=== PATIENT | female | born 1955 | race African-American/Black ===

== ENCOUNTER 2016-06-30 18:47 | Inpatient (IN) | payer OTHER ==
[~2016-06-30] VITALS: Ht 170.2 cm; Wt 120.8 kg
[2016-06-30 18:55] VITALS: Ht 170.2 cm; Wt 120.8 kg
[2016-06-30 20:32] LABS: ADD SCAN DIFF NO
[2016-06-30 20:45] LABS: BASOPHILS % 0.3 % (0.0-2.0); EOSINOPHILS # 0.2 10^3/ul (0.0-0.5); EOSINOPHILS % 2.1 % (0.0-7.0); HEMATOCRIT 46.9 % (37.0-47.0); HEMOGLOBIN 14.9 g/dl (12.0-16.0); LYMPHOCYTES # 4.3 10^3/ul (0.8-2.9); LYMPHOCYTES % 40.3 % (15.0-51.0); MEAN CORPUSCULAR HEMOGLOBIN 29.7 pg (29.0-33.0); MEAN CORPUSCULAR HGB CONC 31.8 g/dl (32.0-37.0); MEAN CORPUSCULAR VOLUME 93.6 fl (82.0-101.0); MEAN PLATELET VOLUME 9.5 fl (7.4-10.4); MONOCYTE # 0.8 10^3/ul (0.3-0.9); MONOCYTES % 7.8 % (0.0-11.0); NEUTROPHIL # 5.2 10^3/ul (1.6-7.5); NUCLEATED RED BLOOD CELLS% 0.2 /100WBC (0.0-0.0); PLATELET COUNT 257 10^3/UL (140-415); RED BLOOD COUNT 5.01 10^6/ul (4.20-5.40); RED CELL DISTRIBUTION WIDTH 14.5 % (11.5-14.5); WHITE BLOOD COUNT 10.6 10^3/ul (4.8-10.8)
[2016-06-30 20:45] LABS: ADD UMIC YES; URINE BILIRUBIN (Dip) NEGATIVE (NEGATIVE); URINE BLOOD (Dip) NEGATIVE (NEGATIVE); URINE COLOR LT. YELLOW (YELLOW); URINE GLUCOSE (Dip) NEGATIVE (NEGATIVE); URINE KETONES (Dip) NEGATIVE (NEGATIVE); URINE LEUKOCYTE ESTERASE (Dip) TRACE (NEGATIVE); URINE NITRITE (Dip) NEGATIVE (NEGATIVE); URINE TOTAL PROTEIN (Dip) NEGATIVE (NEGATIVE); URINE UROBILINOGEN (Dip) 1.0 E.U./dL (0.1-1.0)
[2016-06-30 20:59] LABS: CHLORIDE 106 mmol/L (97-110); POTASSIUM 3.7 mmol/L (3.5-5.1); SODIUM 145 mmol/L (135-144)
[2016-06-30 21:01] LABS: ALBUMIN/GLOBULIN RATIO 1.05; ANION GAP 17 (8-16); ASPARTATE AMINO TRANSFERASE 77 IU/L (15-46); BILIRUBIN,INDIRECT 0.1 mg/dl (0-1.1); BILIRUBIN,TOTAL 0.1 mg/dl (0.2-1.3); CARBON DIOXIDE 26 mmol/L (21-31); CREATININE 1.02 mg/dl (0.44-1.00); TOTAL PROTEIN 7.8 g/dl (6.1-8.1)
[2016-06-30 21:02] LABS: ALANINE AMINOTRANSFERASE 61 IU/L (13-69); ALKALINE PHOSPHATASE 102 IU/L (42-121); BLOOD UREA NITROGEN 10 mg/dl (7-20); GLUCOSE 72 mg/dl (70-220)
[2016-06-30] MEDS ORDERED: morphine 4 MG/ML VIAL IV STA (21:08)
[2016-06-30] MEDS ORDERED: ONDANSETRON 4 MG INJ IV STA (21:08)
[2016-06-30 21:10] LABS: BACTERIA,URINE FEW; SQUAMOUS EPITHELIAL CELL,UR FEW; URINE RBCS 0-2 /HPF (0)
[2016-06-30 21:17] LABS: TROPONIN-I < 0.012 ng/ml (0.00-0.12)
[2016-06-30] MEDS ORDERED: METF500T4 ORAL (22:29)
[2016-06-30] MEDS ORDERED: LORA-441 ORAL (22:29)
[2016-06-30] MEDS ORDERED: SIMV20TA6 ORAL (22:29)
--- NOTE | 2016-06-30 22:57 | RADRPT ---
PROCEDURE: XR Chest. CLINICAL INDICATION: Chest pain. TECHNIQUE: Portable AP upright view of the chest was obtained. COMPARISON: None. FINDINGS: The cardiomediastinal silhouette is within normal limits. The lungs are clear. There is no evidenc e for pleural effusion, pneumothorax or pulmonary vascular congestion. The osseous structures are i ntact with no evidence for acute abnormality. Tiny metallic densities projecting over the right uppe r hemithorax likely reflect shrapnel from an old injury. RPTAT:HJJR IMPRESSION: No evidence for acute intrathoracic pathology. Physician Edith Date Time Electronically viewed and signed by Physician Edith on 06/30/2016 22:56 /
[2016-07-01] MEDS ORDERED: HYDROmorphONE 1 MG/ML SYG IV STA (01:57)
--- NOTE | 2016-07-01 02:12 | ERA ---
ER Documentation Chief Complaint Date/Time DATE: 07/01/16 TIME: 02:11 Chief Complaint pt c/o dizziness, shakiness, upset stomach, recently dx with cancer HPI This is a 62-year-old female, the dizziness shakiness of the stomach. She recently diagnosed cancer. She complains of chronic abdominal pain. Denies any fevers or chills. Denies any nausea vomiting. Denies any other current complaints ROS All systems reviewed and are negative except as per history of present illness. Medications Home Meds Reported Medications Simvastatin (Simvastatin) 20 Mg Tablet, ORAL HS 06/30/16 Metformin* (Glucophage*) 500 Mg Tab, ORAL DAILY 06/30/16 Lorazepam* (Ativan*) 0.5 Mg Tablet, ORAL DAILY 06/30/16 Allergies Allergies: Coded Allergies: No Known Allergy (Unverified , 06/30/16) PMhx/Soc History of Surgery: Yes (arturo) Anesthesia Reaction: No Hx Neurological Disorder: No Hx Respiratory Disorders: Yes (COPD) Hx Cardiac Disorders: Yes (HTN) Hx Psychiatric Problems: No Hx Miscellaneous Medical Probl: Yes (uterine, ovary cancer, CRF, DM) Hx Alcohol Use: No Hx Substance Use: No Hx Tobacco Use: Yes Smoking Status: Current every day smoker Physical Exam Vitals Vital Signs Date Time Temp Pulse Resp B/P Pulse Ox O2 Delivery O2 Flow Rate FiO2 06/30/16 20:00 98.6 76 18 124/74 93 Room Air 06/30/16 18:55 98.1 83 20 140/63 96 Physical Exam Const: [] Head: Atraumatic Eyes: Normal Conjunctiva ENT: Normal External Ears, Nose and Mouth. Neck: Full range of motion..~ No meningismus. Resp: Clear to auscultation bilaterally Cardio: Regular rate and rhythm, no murmurs Abd: Soft, non tender, non distended. Normal bowel sounds Skin: No petechiae or rashes Back: No midline or flank tenderness Ext: No cyanosis, or edema Neur: Awake and alert Psych: Normal Mood and Affect Result Diagram: 06/30/16201706/30/162017 Results 24 hrs Laboratory Tests Test 06/30/16 20:06 06/30/16 20:18 Urine Color LT. YELLOW Urine Clarity CLEAR Urine pH 6.0 Urine Specific Cutler 1.015 Urine Ketones NEGATIVE Urine Nitrite NEGATIVE Urine Bilirubin NEGATIVE Urine Urobilinogen 1.0 E.U./dL Urine Leukocyte Esterase TRACE Urine Microscopic RBC 0-2/HPF Urine Microscopic WBC 0-2/HPF Urine Squamous Epithelial Cells FEW Urine Bacteria FEW Urine Hemoglobin NEGATIVE Urine Glucose NEGATIVE% Urine Total Protein NEGATIVE White Blood Count 10.610^3/ul Red Blood Count 5.0110^6/ul Hemoglobin 14.9g/dl Hematocrit 46.9% Mean Corpuscular Volume 93.6fl Mean Corpuscular Hemoglobin 29.7pg Mean Corpuscular Hemoglobin Concent 31.8g/dl Red Cell Distribution Width 14.5% Platelet Count 03690^3/UL Mean Platelet Volume 9.5fl Neutrophils % 49.0% Lymphocytes % 40.3% Monocytes % 7.8% Eosinophils % 2.1% Basophils % 0.3% Nucleated Red Blood Cells % 0.2/100WBC Neutrophils # 5.210^3/ul Lymphocytes # 4.310^3/ul Monocytes # 0.810^3/ul Eosinophils # 0.210^3/ul Basophils # 0.010^3/ul Nucleated Red Blood Cells # 0.010^3/ul Sodium Level 145mmol/L Potassium Level 3.7mmol/L Chloride Level 106mmol/L Carbon Dioxide Level 26mmol/L Anion Gap 17 Blood Urea Nitrogen 10mg/dl Creatinine 1.02mg/dl Glucose Level 72mg/dl Calcium Level 9.0mg/dl Total Bilirubin 0.1mg/dl Direct Bilirubin 0.00mg/dl Indirect Bilirubin 0.1mg/dl Aspartate Amino Transf (AST/SGOT) 77IU/L Alanine Aminotransferase (ALT/SGPT) 61IU/L Alkaline Phosphatase 102IU/L Troponin I < 0.012ng/ml Total Protein 7.8g/dl Albumin 4.0g/dl Globulin 3.80g/dl Albumin/Globulin Ratio 1.05 Lipase 71U/L Current Medications Medications (Trade) Dose Ordered Sig/Hortencia Route PRN Reason Start Time Stop Time Status Last Admin Dose Admin Morphine Sulfate (morphine) 4 mg ONCE STAT IV 06/30/16 21:08 06/30/16 21:47 DC 06/30/16 21:52 Ondansetron HCl (Zofran Inj) 4 mg ONCE STAT IV 06/30/16 21:08 5/14/17 21:47 DC 06/30/16 21:51 Hydromorphone HCl (Dilaudid) 1 mg ONCE STAT IV 07/01/16 01:57 07/01/16 01:58 DC 07/01/16 02:03 Procedures/MDM Medical decision-making: Patient comes with intractable abdominal pain. At this point she will need to be admitted. Patient will be admitted to Dr. Brown. Departure Diagnosis: Primary Impression: Intractable abdominal pain Condition: Serious SEVERO DAMIAN July 01, 2016 02:12
[2016-07-01 03:58] VITALS: TEMP 98.3
[2016-07-01 05:13] VITALS: BP 96/48; RESP 19
[2016-07-01] MEDS ORDERED: DOCUSATE SODIUM 250 MG CAP PO PRN ×2 (05:30→13:30)
[2016-07-01] MEDS ORDERED: HYDROmorphONE 2 MG TAB PO PRN ×2 (06:00→13:30)
[2016-07-01] MEDS ORDERED: ACETAMINOPHEN 325 MG TAB PO PRN (06:30)
[2016-07-01] MEDS ORDERED: DOCUSATE SODIUM 100 MG CAP PO PRN (06:30)
[2016-07-01] MEDS ORDERED: BISACODYL (EC) 5 MG TAB PO PRN (06:30)
[2016-07-01] MEDS ORDERED: MAGNESIUM HYDROXIDE 30ML CUP PO PRN (06:30)
[2016-07-01] MEDS ORDERED: NACL 0.9% 3 ML SYG IV SCH (06:30)
[2016-07-01] MEDS ORDERED: ONDANSETRON 4 MG INJ IV PRN (06:30)
[2016-07-01] MEDS ORDERED: DOCU250C17 PO (06:40)
[2016-07-01] MEDS ORDERED: CLON0.5T4 PO (06:40)
[2016-07-01] MEDS ORDERED: PREG50CA PO (06:40)
[2016-07-01] MEDS ORDERED: HYDR2TAB15 PO (06:40)
[2016-07-01] MEDS ORDERED: ATOR40TA68 PO (06:40)
[2016-07-01] MEDS ORDERED: METO100T13 PO (06:40)
[2016-07-01] MEDS ORDERED: QUET400T11 PO (06:40)
[2016-07-01] MEDS ORDERED: BACL10TA PO (06:40)
[2016-07-01] MEDS ORDERED: DULO60CA59 PO (06:40)
[2016-07-01] MEDS ORDERED: GLIP-95 PO (06:40)
[2016-07-01] MEDS ORDERED: DEXTROSE 50% 50 ML SYRINGE IV PRN ×2 (07:00)
[2016-07-01] MEDS ORDERED: GLUCOSE GEL 15 GRAM TUBE BUCCAL PRN (07:00)
[2016-07-01] MEDS ORDERED: GLUCOSE GEL 15 GRAM TUBE PO PRN ×2 (07:00)
[2016-07-01] MEDS ORDERED: GLUCAGON 1 MG INJ IM PRN (07:00)
[2016-07-01] MEDS: INSULIN ASPART [NOVOLOG] 3 ML PEN SC SCH ×4 (07:51→19:58)
[2016-07-01 08:07] VITALS: BP 109/52; RESP 21
[2016-07-01] MEDS: ENOXAPARIN 40 MG/0.4 ML SYG SC SCH (08:18)
[2016-07-01] MEDS ORDERED: glipiZIDE 10 MG TAB PO SCH (09:00)
[2016-07-01] MEDS ORDERED: LORAZEPAM 0.5 MG TAB PO SCH (09:00)
[2016-07-01] MEDS ORDERED: PREGABALIN 50 MG CAP PO SCH ×2 (09:00→21:00)
[2016-07-01] MEDS ORDERED: METOPROLOL (XL) 100 MG TAB PO SCH (09:00)
[2016-07-01] MEDS ORDERED: BACLOFEN 10 MG TAB PO SCH (09:00)
[2016-07-01] MEDS ORDERED: clonAZEPAM 0.5 MG TAB PO SCH (09:00)
[2016-07-01] MEDS ORDERED: DULOXETINE 30 MG CAP DR PO SCH (09:00)
[2016-07-01] MEDS ORDERED: IODIXANOL LOCM 100 ML BTL ONE (14:55)
[2016-07-01] MEDS ORDERED: SOD CHLORIDE 0.9% 100 ML ONE (14:55)
--- NOTE | 2016-07-01 15:30 | RADRPT ---
PROCEDURE: CT of the abdomen and pelvis CLINICAL INDICATION: Abdominal pain. History of ovarian cancer. TECHNIQUE: The study was performed utilizing a GE lightspeed 64-slice multidetector CT scanner. Dir ect spiral axial sections were obtained through the abdomen and pelvis with intravenous contrast. Af ter administration of 100cc of Visipaque 320, postcontrast images were obtained. Coronal and sagitt al reformatted images were performed. The CTDI vol is 17.04 mGy and the DLP is 1333.82 mGy-cm. The images were reviewed on a PACS workstation. COMPARISON: No prior studies are available for comparison. FINDINGS: CT abdomen: The lung bases are clear. The heart is not enlarged. No pericardial effusion is seen. The liver is normal in size and contour. No focal liver lesions is seen. The gallbladder has been r emoved. Biliary dilatation is identified. The spleen, pancreas, and adrenal glands are unremarkabl e in appearance. The kidneys are normal in size and contour enhance normally. Right renal cortical s carring is seen. No evidence of hydronephrosis or nephrolithiasis is seen. The stomach is unremarkable. The large bowel is stool-filled. The small and large bowel are otherwi se unremarkable in course and caliber. A normal appendix is identified. No enlarged lymph nodes or fluid collections are seen. The aorta is normal in caliber. CT pelvis: The pelvic cystic structure is seen which is in the midline to slightly right of midline which is slightly complex with multiple septations. The pelvic cystic structure measures approximat jose 11.8 x 11.2 x 10.6 cm in size. No pelvic adenopathy, or focal fluid collection is seen. There i s no free fluid. The urinary bladder is normal. The pelvic organs are unremarkable. No osseous les ions are seen. Severe osteoarthritis in the right hip is seen. IMPRESSION: 1. Complex pelvic cystic structure consistent with the clinical history of an ovarian cancer. 2. Status post cholecystectomy with biliary dilatation which may be physiologic. 3. Severe osteoarthritis of the right hip. 4. Stool filled large bowel. RPTAT: HPNM Physician Louise Date Time Electronically viewed and signed by Physician Louise on 07/01/2016 15:30 /
[2016-07-01 15:54] LABS: CANCER ANTIGEN 125 7.1 U/ml (0.0-35.0)
[2016-07-01 15:55] LABS: CARCINOEMBRYONIC ANTIGEN 1.4 ng/ml (0.0-5.0)
--- NOTE | 2016-07-01 16:12 | RADRPT ---
PROCEDURE: CT Chest. CLINICAL INDICATION: Dyspnea and shortness of breath TECHNIQUE: CT scan of the chest with contrast was performed on the [employer] volumetric [address] [facility] The patient was scanned following the uncomplicated intravenous administration of 100 cc of Vis ipaque 320 intravenous contrast. Coronal and sagittal reformatted images were obtained from the axia l source images. The CTDI is 17.04 mGy and the DLP is 1333.82 mGy-cm. COMPARISON: None. FINDINGS: Diffuse central of emphysematous changes are seen within upper lobe predominance. No dense consolida tion or pleural effusion is seen. Shrapnel is seen in the right lung. In addition, shrapnel is see n in the right posterior chest wall. The mediastinum is unremarkable without evidence for mass or lymphadenopathy. The vascular structures of the mediastinum are normal in course and caliber. The heart size is normal without evidence for pericardial thickening or effusion. The axillary regions, subpectoral regions, and supraclavicular regions are all unremarkable. Findings in the upper abdom en, please refer to the CT of the abdomen and pelvis report from 07/01/2016. The osseous structures are intact. No osteolytic or osteoblastic lesion is detected. IMPRESSION: 1. No CT evidence for acute pathology in the chest. 2. Diffuse centrilobular emphysematous changes. 3. Shrapnel in the right posterior chest wall as well as in the right lung. RPTAT: HPNM Physician Louise Date Time Electronically viewed and signed by Physician Louise on 07/01/2016 16:11 /
--- NOTE | 2016-07-01 17:38 | QN ---
Documentation Comment [id number] LATRICIA WORLEY MD July 01, 2016 17:38
[2016-07-01] MEDS: clonAZEPAM 0.5 MG TAB PO SCH ×2 (18:12→20:09)
[2016-07-01] MEDS: BACLOFEN 10 MG TAB PO SCH (20:09)
[2016-07-01] MEDS: QUETIAPINE 100 MG TAB PO SCH (20:09)
[2016-07-01] MEDS: PREGABALIN 25 MG CAP PO SCH (20:09)
[2016-07-01] MEDS: ATORVASTATIN 40 MG TAB PO SCH (20:09)
[2016-07-01 20:20] VITALS: BP 117/58; RESP 19
[2016-07-01] MEDS ORDERED: QUETIAPINE 100 MG TAB PO SCH (21:00)
[2016-07-01] MEDS ORDERED: ATORVASTATIN 40 MG TAB PO SCH (21:00)
--- NOTE | 2016-07-01 23:26 | HP ---
DATE OF ADMISSION: 07/01/2016 HISTORY OF PRESENT ILLNESS: The patient presented to this hospital with complaints of weakness, abdominal pain. The patient as per ER note noted to have some sort of LEGAL MANAGER malignancy, the patient is not sure, but patient was supposed to see Dr. Rodriguez. I spoke with Dr. Rodriguez. He told me that patient has pelvic mass and the patient presented to this hospital for that. The patient had a CT of the chest done, shows no CT evidence for acute pathology. Diffuse centrilobular_ in the right posterior chest wall as well as the right lung. The patient had CT abdomen, pelvis, chest, shows complex pelvic cystic structure consistent with clinical history of ovarian cancer; status post cholecystectomy with biliary dilatation which may be physiologic; severe osteoarthritis of the right hip; stool-filled large bowel. The patient' s laboratory data done shows sodium 145, potassium 3.7, hematocrit 46.9. Urinalysis has leukocyte esterase but WBC negative. PAST MEDICAL HISTORY: Positive for hypertension, diabetes mellitus, dyslipidemia, pelvic mass, neuropathy. ALLERGY HISTORY: NEGATIVE. FAMILY HISTORY: Positive for cancer, patient does not know what kind. SOCIAL HISTORY: Smokes few cigarettes. No drugs. MEDICATIONS: At home, patient takes: 1. Lipitor. 2. Baclofen. 3. Clonazepam. 4. Docusate sodium. 5. Cymbalta. 6. Glipizide. 7. Hydromorphone. 8. Lorazepam. 9. Metformin. 10. Metoprolol. 11. Pregabalin. 12. Seroquel. 13. Simvastatin. REVIEW OF SYSTEMS: HEENT: Unremarkable. RESPIRATORY: Unremarkable. CARDIOVASCULAR: Unremarkable. ABDOMEN: No abdominal pain at this time but ongoing dyspepsia. EXTREMITIES: History of neuropathy. PHYSICAL EXAMINATION: GENERAL: The patient is anxious-looking female, awake, alert. VITAL SIGNS: Pulse 65, blood pressure 95/48. HEENT: Head is atraumatic, normocephalic. Pupils equal, reactive to light. NECK: Supple. No JVD. LUNGS: Clear. CARDIOVASCULAR: S1, S2 normal. ABDOMEN: Soft, nontender. Bowel sounds positive. No palpable mass or hepatosplenomegaly. Scar of cholecystectomy noted. EXTREMITIES: There is no cyanosis, clubbing or edema. CENTRAL NERVOUS SYSTEM: The patient is awake, alert with no focal deficit. LABORATORY DATA: As mentioned above. IMPRESSION: 1. The patient has complex pelvic cystic structure 11.8 x 11.2 x 10.6 cm in size. 2. The patient has hypernatremia. 3. The patient has renal insufficiency. 4. History of diabetes mellitus. 5. Dyslipidemia. 6. History of hypertension. 7. History of cholecystectomy. PLAN: Obtain cancer marker. Dr. Rodriguez to see this patient, consultation has been called. Further recommendation will be made when above data is available. Dictated By: LATRICIA WORLEY MD BS/NTS Conf#: [id number] DID#: [id number] MTDD
[2016-07-02] MEDS: ACCU-CHEK XX SCH (02:00)
[2016-07-02 06:12] LABS: ADD SCAN DIFF NO; BASOPHILS % 0.3 % (0.0-2.0); EOSINOPHILS # 0.2 10^3/ul (0.0-0.5); EOSINOPHILS % 3.1 % (0.0-7.0); HEMATOCRIT 44.8 % (37.0-47.0); LYMPHOCYTES # 1.8 10^3/ul (0.8-2.9); LYMPHOCYTES % 29.7 % (15.0-51.0); MEAN CORPUSCULAR HEMOGLOBIN 29.5 pg (29.0-33.0); MEAN CORPUSCULAR HGB CONC 31.3 g/dl (32.0-37.0); MEAN CORPUSCULAR VOLUME 94.5 fl (82.0-101.0); MEAN PLATELET VOLUME 10.1 fl (7.4-10.4); MONOCYTE # 0.6 10^3/ul (0.3-0.9); MONOCYTES % 9.7 % (0.0-11.0); NEUTROPHIL # 3.4 10^3/ul (1.6-7.5); PLATELET COUNT 230 10^3/UL (140-415); RED BLOOD COUNT 4.74 10^6/ul (4.20-5.40); RED CELL DISTRIBUTION WIDTH 14.4 % (11.5-14.5); WHITE BLOOD COUNT 5.9 10^3/ul (4.8-10.8)
[2016-07-02] MEDS: PANTOPRAZOLE 40 MG INJ IV SCH (06:20)
[2016-07-02] MEDS: morphine 2 MG INJ IV PRN ×3 (06:20→20:33)
[2016-07-02 06:24] LABS: ALBUMIN 3.4 g/dl (3.3-4.9)
[2016-07-02 06:25] LABS: POTASSIUM 3.5 mmol/L (3.5-5.1)
[2016-07-02 06:27] LABS: ALBUMIN/GLOBULIN RATIO 0.97; BILIRUBIN,INDIRECT 0.3 mg/dl (0-1.1); BILIRUBIN,TOTAL 0.3 mg/dl (0.2-1.3); CALCIUM 8.8 mg/dl (8.4-10.2); CREATININE 0.91 mg/dl (0.44-1.00); TOTAL PROTEIN 6.9 g/dl (6.1-8.1)
[2016-07-02 07:30] VITALS: BP 124/57; RESP 19
[2016-07-02] MEDS: INSULIN ASPART [NOVOLOG] 3 ML PEN SC SCH ×4 (07:43→20:32)
[2016-07-02] MEDS: clonAZEPAM 0.5 MG TAB PO SCH ×3 (08:32→20:29)
[2016-07-02] MEDS: BACLOFEN 10 MG TAB PO SCH ×3 (08:33→20:29)
[2016-07-02] MEDS: PREGABALIN 25 MG CAP PO SCH ×2 (08:33→20:30)
[2016-07-02] MEDS: DULOXETINE 30 MG CAP DR PO SCH (08:33)
[2016-07-02] MEDS: ENOXAPARIN 40 MG/0.4 ML SYG SC SCH (08:34)
[2016-07-02] MEDS: METOPROLOL (XL) 100 MG TAB PO SCH (08:53)
[2016-07-02 10:20] VITALS: BP 121/63; PULSE 80; RESP 16
[2016-07-02 11:11] LABS: AADO2 Arterial 66.9 mmHg (7.0-24.0); Allen Test ACCEPTAB; Arterial Base Excess -0.1 mmol/L (-3.0-3); Arterial COHb 0.7 % (0.0-3.0); Arterial Fraction of Oxyhgb 91.8 % (93.0-99.0); Arterial HCO3 25.8 mmol/L (22.0-26.0); Arterial MetHb 0.2 % (0.0-1.5); Arterial Total Hemglobin 14.4 g/dl (12.0-18.0); MODE NASAL CANNULA
--- NOTE | 2016-07-02 12:07 | RADRPT ---
PROCEDURE: Chest Radiograph. CLINICAL INDICATION: Hypoxia TECHNIQUE: Single frontal chest radiograph. COMPARISON: Chest radiograph of 06/30/2016. CT chest 07/01/2016. FINDINGS: Lung volumes are moderately decreased and there is worsening basilar atelectasis and central carol sive change. These findings limit evaluation for central vascular congestion and pulmonary edema. F urthermore, the patient is rotated. Heart size is poorly evaluated. There is worsening bilateral in terstitial and air space disease suggesting pulmonary edema. Multifocal pneumonia could also the torres perior. The bones are intact. Right chest wall shrapnel is unchanged. IMPRESSION: 1. Interval marked decrease in lung volumes with associated basilar atelectasis and central carol sive change which limits evaluation. 2. New interstitial and airspace opacities which may be related to compressive changes but raise co ncern for pulmonary edema and/or multifocal pneumonia. Recommend repeat chest radiograph with impro sukumar inspiration if possible. RPTAT: KK .Abbe Couch MD, MD Date Time Electronically viewed and signed by .Abbe Couch MD, on 07/02/2016 12:07 .B/
[2016-07-02] MEDS ORDERED: ALBUTEROL/IPRATROPIUM (NEB) 3 ML AMP HHN PRN (13:00)
[2016-07-02] MEDS: ALBUTEROL/IPRATROPIUM (NEB) 3 ML AMP HHN SCH ×2 (16:11→20:36)
[2016-07-02 20:05] VITALS: BP 118/63; RESP 18
[2016-07-02] MEDS: ATORVASTATIN 40 MG TAB PO SCH (20:30)
[2016-07-02] MEDS: QUETIAPINE 100 MG TAB PO SCH (20:31)
--- NOTE | 2016-07-02 21:35 | CONS ---
Date/Time of Note Date/Time of Note DATE: 07/02/16 TIME: 21:34 Consultation Date/Type/Reason Admit Date/Time July 01, 2016 at 04:43 Hx of Present Illness Ceasar Rondon M.D. 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 The mass is complex and 8-10 cm central pelvis associated with pain. The pain is worstening and she was also admitted for medical issues as well with O2 desat. Medical history/ROS: all other systems unremarkable. Surgical history: GB and CS x1 Medications: Flu no, declined, Pneumococcal no, declined Allergies: 06/27/16 Codeine Family Hx: non-contributary Social HX: non-contributary ROS: as above Colonoscopy: yes, Physical Examination Vitals (06/27/2016): Weight 257, Height 67, BP 122/80, BMI 40.2. General: Alert. HEENT: Pupils are equal, round, reactive to light and accommodation. Neck: Supple with no masses of lymphadenopathy. Breast: Deferred due to recent examination and responsibility of primary care physician. Chest: Clear to auscultation but on O2 and labored Heart: Normal rhythm with no murmur. Abdomen: Non tender, no ascites nor organomeglay. Pelvic exam: Posterior pelvic mass, no cul-de-sac nodularity noted Rectal: confirmatory with pelvic exam. Neurological: Grossly intact Assessment: Pelvic mass Plan: PENDING clearance: Laparoscopic BSO, possible UDx2 , possible hysterectomy , possible staging, possible open to remove pelvic mass. All risks and benefits of this procedure have been discussed in detail with the patient, as well as alternative treatment strategies and their implications. The patient is aware that there is some possibility of a blood transfusion and its associated risks and benefits. She wishes to proceed and gives her informed consent. Ceasar Rondon M.D. Social History Smoking Status: Current every day smoker Exam/Review of Systems Vital Signs Vitals Vital Signs Date Time Temp Pulse Resp B/P Pulse Ox O2 Delivery O2 Flow Rate FiO2 07/02/16 20:36 95 2.0 07/02/16 20:36 85 17 Nasal Cannula 07/02/16 20:05 97.9 118/63 Intake and Output 07/01/16 07/01/16 07/02/16 15:00 23:00 07:00 Intake Total 1220 ml 500 ml Balance 1220 ml 500 ml Results Result Diagram: 07/02/16 0430 07/02/16 0430 Results 24 hrs Laboratory Tests Test 07/02/16 04:30 07/02/16 07:38 07/02/16 10:30 07/02/16 11:50 White Blood Count 5.9 # Red Blood Count 4.74 Hemoglobin 14.0 Hematocrit 44.8 Mean Corpuscular Volume 94.5 Mean Corpuscular Hemoglobin 29.5 Mean Corpuscular Hemoglobin Concent 31.3 L Red Cell Distribution Width 14.4 Platelet Count 230 Mean Platelet Volume 10.1 Neutrophils % 57.0 Lymphocytes % 29.7 Monocytes % 9.7 Eosinophils % 3.1 Basophils % 0.3 Nucleated Red Blood Cells % 0.0 Neutrophils # 3.4 Lymphocytes # 1.8 Monocytes # 0.6 Eosinophils # 0.2 Basophils # 0.0 Nucleated Red Blood Cells # 0.0 Sodium Level 143 Potassium Level 3.5 Chloride Level 105 Carbon Dioxide Level 26 Anion Gap 16 Blood Urea Nitrogen 12 Creatinine 0.91 Glucose Level 116 # Calcium Level 8.8 Total Bilirubin 0.3 Direct Bilirubin 0.00 Indirect Bilirubin 0.3 Aspartate Amino Transf (AST/SGOT) 133 H Alanine Aminotransferase (ALT/SGPT) 93 H Alkaline Phosphatase 114 Total Protein 6.9 Albumin 3.4 Globulin 3.50 H Albumin/Globulin Ratio 0.97 Bedside Glucose 122 Blood Gas Specimen Source Blood arterial Arterial Blood Date Drawn 07/02/2016 10:50:18 AM Arterial Blood pH (Temp corrected) 7.357 Arterial Blood pCO2 (Temp correct) 47.1 H Arterial Blood pO2 (Temp corrected) 69.9 L Arterial Blood HCO3 25.8 Arterial Blood Base Excess -0.1 Arterial Blood Oxygen Saturation 92.6 L Mike Test ACCEPTAB Arterial Blood Gas Puncture Site Right Radial Arterial Blood Carboxyhemoglobin 0.7 Arterial Blood Methemoglobin 0.2 Blood Gas A-a O2 Differential 66.9 H Oxyhemoglobin Percent 91.8 L Total Hemoglobin 14.4 Blood Gas Temperature 37.0 Blood Gas Modality NASAL CANNULA FiO2 27.0 Blood Gas Notified Whom JLD Blood Gas Notified Time 07/02/2016 11:10:59 AM Troponin I < 0.012 Test 07/02/16 11:53 07/02/16 17:24 07/02/16 20:24 Bedside Glucose 137 126 160 Medications Medications Current Medications Ondansetron HCl (Zofran Inj) 4 mg Q6H PRN IV NAUSEA AND/OR VOMITING; Start at 06:30 Acetaminophen (Tylenol Tab) 650 mg Q6H PRN PO PAIN LEVEL 1-3 OR FEVER; Start at 06:30 Morphine Sulfate (morphine) 2 mg Q4H PRN IV SEVERE PAIN LEVEL 7-10 Last administered on 07/02/16 20:33; Admin Dose 2 MG; Start 07/01/16 at 06:30 Docusate Sodium (Colace) 100 mg Q12H PRN PO CONSTIPATION; Start 07/01/16 at 06: 30 Magnesium Hydroxide (Milk Of Mag) 30 ml DAILY PRN PO CONSTIPATION; Start at 06:30 Bisacodyl (Dulcolax) 5 mg DAILY PRN PO CONSTIPATION; Start 07/01/16 at 06:30 Pantoprazole (Protonix Iv) 40 mg DAILY@06 IV Last administered on 07/02/16 06: 20; Admin Dose 40 MG; Start 07/02/16 at 06:00 Enoxaparin Sodium (Lovenox) 40 mg DAILY SC Last administered on 07/02/16 08:34 ; Admin Dose 40 MG; Start 07/01/16 at 09:00 Diagnostic Test (Pha) (Accu-Chek) 1 ea 02 XX ; Start 07/02/16 at 02:00 Miscellaneous Information 1 ea NOTE XX ; Start 07/01/16 at 07:00 Glucose (Glutose) 15 gm Q15M PRN PO DECREASED GLUCOSE; Start 07/01/16 at 07:00 Glucose (Glutose) 22.5 gm Q15M PRN PO DECREASED GLUCOSE; Start 07/01/16 at 07: 00 Dextrose (D50w Syringe) 25 ml Q15M PRN IV DECREASED GLUCOSE; Start 07/01/16 at 07:00 Dextrose (D50w Syringe) 50 ml Q15M PRN IV DECREASED GLUCOSE; Start 07/01/16 at 07:00 Glucagon (Glucagen) 1 mg Q15M PRN IM DECREASED GLUCOSE; Start 07/01/16 at 07:00 Glucose (Glutose) 15 gm Q15M PRN BUCCAL DECREASED GLUCOSE; Start 07/01/16 at 07 :00 Atorvastatin Calcium (Lipitor) 40 mg HS PO Last administered on 07/02/16 20:30 ; Admin Dose 40 MG; Start 07/01/16 at 21:00 Baclofen (Lioresal) 10 mg TID PO Last administered on 07/02/16 20:29; Admin Dose 10 MG; Start 07/01/16 at 21:00 Clonazepam (Klonopin) 0.5 mg TID PO Last administered on 07/02/16 20:29; Admin Dose 0.5 MG; Start 07/01/16 at 19:00 Docusate Sodium (Colace) 250 mg DAILY PRN PO CONSTIPATION; Start 07/01/16 at 13 :30 Duloxetine HCl (Cymbalta) 60 mg DAILY PO Last administered on 07/02/16 08:33; Admin Dose 60 MG; Start 07/02/16 at 09:00 Hydromorphone HCl (Dilaudid) 2 mg TID PRN PO pain Last administered on 17:26; Admin Dose 2 MG; Start 07/01/16 at 13:30 Metoprolol Succinate (Toprol Xl) 100 mg DAILY PO ; Start 07/02/16 at 09:00 Quetiapine Fumarate (Seroquel) 400 mg QHS PO Last administered on 07/02/16 20: 31; Admin Dose 400 MG; Start 07/01/16 at 21:00 Pregabalin (Lyrica) 50 mg BID PO Last administered on 07/02/16 20:30; Admin Dose 50 MG; Start 07/01/16 at 21:00 CEASAR RONDON MD July 02, 2016 21:35
--- NOTE | 2016-07-02 23:19 | PN ---
Date/Time of Note Date/Time of Note DATE: 07/02/16 TIME: 23:18 Assessment/Plan VTE Prophylaxis VTE Prophylaxis Intervention: other Lines/Catheters IV Catheter Type (from [facility]): Saline Lock Assessment/Plan Chief Complaint/Hosp Course IMPRESSION: 1. The patient has complex pelvic cystic structure 11.8 x 11.2 x 10.6 cm in size. 2. The patient has hypernatremia. 3. The patient has renal insufficiency. 4. History of diabetes mellitus. 5. Dyslipidemia. 6. History of hypertension. 7. History of cholecystectomy. 9 copd 10 poss pneumonia/atelectasis plan hhn antibiotic Problems: Subjective 24 Hr Interval Summary Respiratory: shortness of breath (+) Gastrointestinal: no complaints Genitourinary: no complaints Exam/Review of Systems Vital Signs Vitals Vital Signs Date Time Temp Pulse Resp B/P Pulse Ox O2 Delivery O2 Flow Rate FiO2 07/02/16 20:36 95 2.0 07/02/16 20:36 85 17 Nasal Cannula 07/02/16 20:05 97.9 118/63 Intake and Output 07/01/16 07/01/16 07/02/16 15:00 23:00 07:00 Intake Total 1220 ml 500 ml Balance 1220 ml 500 ml Exam Respiratory: diminished breath sounds Cardiovascular: regular rate and rhythm Gastrointestinal: bowel sounds, soft Extremities: No edema Results Result Diagram: 07/02/16 0430 07/02/16 0430 Results 24 hrs Laboratory Tests Test 07/02/16 04:30 07/02/16 07:38 07/02/16 10:30 07/02/16 11:50 White Blood Count 5.9 # Red Blood Count 4.74 Hemoglobin 14.0 Hematocrit 44.8 Mean Corpuscular Volume 94.5 Mean Corpuscular Hemoglobin 29.5 Mean Corpuscular Hemoglobin Concent 31.3 L Red Cell Distribution Width 14.4 Platelet Count 230 Mean Platelet Volume 10.1 Neutrophils % 57.0 Lymphocytes % 29.7 Monocytes % 9.7 Eosinophils % 3.1 Basophils % 0.3 Nucleated Red Blood Cells % 0.0 Neutrophils # 3.4 Lymphocytes # 1.8 Monocytes # 0.6 Eosinophils # 0.2 Basophils # 0.0 Nucleated Red Blood Cells # 0.0 Sodium Level 143 Potassium Level 3.5 Chloride Level 105 Carbon Dioxide Level 26 Anion Gap 16 Blood Urea Nitrogen 12 Creatinine 0.91 Glucose Level 116 # Calcium Level 8.8 Total Bilirubin 0.3 Direct Bilirubin 0.00 Indirect Bilirubin 0.3 Aspartate Amino Transf (AST/SGOT) 133 H Alanine Aminotransferase (ALT/SGPT) 93 H Alkaline Phosphatase 114 Total Protein 6.9 Albumin 3.4 Globulin 3.50 H Albumin/Globulin Ratio 0.97 Bedside Glucose 122 Blood Gas Specimen Source Blood arterial Arterial Blood Date Drawn 07/02/2016 10:50:18 AM Arterial Blood pH (Temp corrected) 7.357 Arterial Blood pCO2 (Temp correct) 47.1 H Arterial Blood pO2 (Temp corrected) 69.9 L Arterial Blood HCO3 25.8 Arterial Blood Base Excess -0.1 Arterial Blood Oxygen Saturation 92.6 L Mike Test ACCEPTAB Arterial Blood Gas Puncture Site Right Radial Arterial Blood Carboxyhemoglobin 0.7 Arterial Blood Methemoglobin 0.2 Blood Gas A-a O2 Differential 66.9 H Oxyhemoglobin Percent 91.8 L Total Hemoglobin 14.4 Blood Gas Temperature 37.0 Blood Gas Modality NASAL CANNULA FiO2 27.0 Blood Gas Notified Whom JLD Blood Gas Notified Time 07/02/2016 11:10:59 AM Troponin I < 0.012 Test 07/02/16 11:53 07/02/16 17:24 07/02/16 20:24 Bedside Glucose 137 126 160 Medications Medications Current Medications Ondansetron HCl (Zofran Inj) 4 mg Q6H PRN IV NAUSEA AND/OR VOMITING; Start at 06:30 Acetaminophen (Tylenol Tab) 650 mg Q6H PRN PO PAIN LEVEL 1-3 OR FEVER; Start at 06:30 Morphine Sulfate (morphine) 2 mg Q4H PRN IV SEVERE PAIN LEVEL 7-10 Last administered on 07/02/16 20:33; Admin Dose 2 MG; Start 07/01/16 at 06:30 Docusate Sodium (Colace) 100 mg Q12H PRN PO CONSTIPATION; Start 07/01/16 at 06: 30 Magnesium Hydroxide (Milk Of Mag) 30 ml DAILY PRN PO CONSTIPATION; Start at 06:30 Bisacodyl (Dulcolax) 5 mg DAILY PRN PO CONSTIPATION; Start 07/01/16 at 06:30 Pantoprazole (Protonix Iv) 40 mg DAILY@06 IV Last administered on 07/02/16 06: 20; Admin Dose 40 MG; Start 07/02/16 at 06:00 Enoxaparin Sodium (Lovenox) 40 mg DAILY SC Last administered on 07/02/16 08:34 ; Admin Dose 40 MG; Start 07/01/16 at 09:00 Diagnostic Test (Pha) (Accu-Chek) 1 ea 02 XX ; Start 07/02/16 at 02:00 Miscellaneous Information 1 ea NOTE XX ; Start 07/01/16 at 07:00 Glucose (Glutose) 15 gm Q15M PRN PO DECREASED GLUCOSE; Start 07/01/16 at 07:00 Glucose (Glutose) 22.5 gm Q15M PRN PO DECREASED GLUCOSE; Start 07/01/16 at 07: 00 Dextrose (D50w Syringe) 25 ml Q15M PRN IV DECREASED GLUCOSE; Start 07/01/16 at 07:00 Dextrose (D50w Syringe) 50 ml Q15M PRN IV DECREASED GLUCOSE; Start 07/01/16 at 07:00 Glucagon (Glucagen) 1 mg Q15M PRN IM DECREASED GLUCOSE; Start 07/01/16 at 07:00 Glucose (Glutose) 15 gm Q15M PRN BUCCAL DECREASED GLUCOSE; Start 07/01/16 at 07 :00 Atorvastatin Calcium (Lipitor) 40 mg HS PO Last administered on 07/02/16 20:30 ; Admin Dose 40 MG; Start 07/01/16 at 21:00 Baclofen (Lioresal) 10 mg TID PO Last administered on 07/02/16 20:29; Admin Dose 10 MG; Start 07/01/16 at 21:00 Clonazepam (Klonopin) 0.5 mg TID PO Last administered on 07/02/16 20:29; Admin Dose 0.5 MG; Start 07/01/16 at 19:00 Docusate Sodium (Colace) 250 mg DAILY PRN PO CONSTIPATION; Start 07/01/16 at 13 :30 Duloxetine HCl (Cymbalta) 60 mg DAILY PO Last administered on 07/02/16 08:33; Admin Dose 60 MG; Start 07/02/16 at 09:00 Hydromorphone HCl (Dilaudid) 2 mg TID PRN PO pain Last administered on 17:26; Admin Dose 2 MG; Start 07/01/16 at 13:30 Metoprolol Succinate (Toprol Xl) 100 mg DAILY PO ; Start 07/02/16 at 09:00 Quetiapine Fumarate (Seroquel) 400 mg QHS PO Last administered on 07/02/16 20: 31; Admin Dose 400 MG; Start 07/01/16 at 21:00 Pregabalin (Lyrica) 50 mg BID PO Last administered on 07/02/16 20:30; Admin Dose 50 MG; Start 07/01/16 at 21:00 Furosemide 20 mg 20 mg DAILY IV ; Start 07/03/16 at 09:00; Status UNV Ceftriaxone Sodium (Rocephin) 50 ml @ 100 mls/hr Q24H IVPB ; Start 07/02/16 at 23:30; Status UNV LATRICIA WORLEY MD July 02, 2016 23:19
[2016-07-03] MEDS: CEFTRIAXONE 1 GM/50 ML (PMX) 50 ML IVPB SCH (00:10)
[2016-07-03] MEDS: ACCU-CHEK XX SCH (01:49)
[2016-07-03] MEDS: ALBUTEROL/IPRATROPIUM (NEB) 3 ML AMP HHN SCH ×4 (02:00→19:52)
[2016-07-03] MEDS: PANTOPRAZOLE 40 MG INJ IV SCH (06:14)
[2016-07-03 07:56] VITALS: BP 116/57; RESP 16
[2016-07-03] MEDS: BACLOFEN 10 MG TAB PO SCH ×3 (08:15→20:45)
[2016-07-03] MEDS: clonAZEPAM 0.5 MG TAB PO SCH ×3 (08:15→20:45)
[2016-07-03] MEDS: PREGABALIN 25 MG CAP PO SCH ×2 (08:15→20:45)
[2016-07-03] MEDS: DULOXETINE 30 MG CAP DR PO SCH (08:16)
[2016-07-03] MEDS: FUROSEMIDE 20 MG INJ IV SCH (08:16)
[2016-07-03] MEDS: METOPROLOL (XL) 100 MG TAB PO SCH (08:17)
[2016-07-03] MEDS: ENOXAPARIN 40 MG/0.4 ML SYG SC SCH (08:18)
[2016-07-03] MEDS: INSULIN ASPART [NOVOLOG] 3 ML PEN SC SCH ×4 (08:19→20:45)
--- NOTE | 2016-07-03 10:50 | PN ---
Date/Time of Note Date/Time of Note DATE: 07/03/16 TIME: 10:45 Assessment/Plan VTE Prophylaxis VTE Prophylaxis Intervention: LMWH Lines/Catheters IV Catheter Type (from Nrsg): Saline Lock Assessment/Plan Chief Complaint/Hosp Course Pelvic mass, possible pneumonia Problems: Assessment/Plan Issue is whether pheumonia and whether cleared for surgery Friday; should I bowel prep a.m. as needed. Will discuss with Dr. Brown. Subjective 24 Hr Interval Summary Free Text/Dictation Feels about the same. Minimally OOB and on O2. Exam/Review of Systems Vital Signs Vitals Vital Signs Date Time Temp Pulse Resp B/P Pulse Ox O2 Delivery O2 Flow Rate FiO2 07/03/16 07:56 98.2 91 16 116/57 92 07/03/16 07:54 21 07/03/16 02:00 2.0 07/03/16 02:00 Nasal Cannula Intake and Output 07/02/16 07/02/16 07/03/16 15:00 23:00 07:00 Intake Total 900 ml 300 ml Balance 900 ml 300 ml Results Result Diagram: 07/02/16 0430 07/02/16 0430 Results 24 hrs Laboratory Tests Test 07/02/16 11:50 07/02/16 11:53 07/02/16 17:24 07/02/16 20:24 Troponin I < 0.012 Bedside Glucose 137 126 160 Test 07/03/16 07:52 Bedside Glucose 168 Medications Medications Current Medications Ondansetron HCl (Zofran Inj) 4 mg Q6H PRN IV NAUSEA AND/OR VOMITING; Start at 06:30 Acetaminophen (Tylenol Tab) 650 mg Q6H PRN PO PAIN LEVEL 1-3 OR FEVER; Start at 06:30 Morphine Sulfate (morphine) 2 mg Q4H PRN IV SEVERE PAIN LEVEL 7-10 Last administered on 07/02/16t 20:33; Admin Dose 2 MG; Start 07/01/16 at 06:30 Docusate Sodium (Colace) 100 mg Q12H PRN PO CONSTIPATION; Start 07/01/16 at 06: 30 Magnesium Hydroxide (Milk Of Mag) 30 ml DAILY PRN PO CONSTIPATION; Start at 06:30 Bisacodyl (Dulcolax) 5 mg DAILY PRN PO CONSTIPATION; Start 07/01/16 at 06:30 Pantoprazole (Protonix Iv) 40 mg DAILY@06 IV Last administered on 07/03/16 06: 14; Admin Dose 40 MG; Start 07/02/16 at 06:00 Enoxaparin Sodium (Lovenox) 40 mg DAILY SC Last administered on 07/03/16 08:18 ; Admin Dose 40 MG; Start 07/01/16 at 09:00 Diagnostic Test (Pha) (Accu-Chek) 1 ea 02 XX ; Start 07/02/16 at 02:00 Miscellaneous Information 1 ea NOTE XX ; Start 07/01/16 at 07:00 Glucose (Glutose) 15 gm Q15M PRN PO DECREASED GLUCOSE; Start 07/01/16 at 07:00 Glucose (Glutose) 22.5 gm Q15M PRN PO DECREASED GLUCOSE; Start 07/01/16 at 07: 00 Dextrose (D50w Syringe) 25 ml Q15M PRN IV DECREASED GLUCOSE; Start 07/01/16 at 07:00 Dextrose (D50w Syringe) 50 ml Q15M PRN IV DECREASED GLUCOSE; Start 07/01/16 at 07:00 Glucagon (Glucagen) 1 mg Q15M PRN IM DECREASED GLUCOSE; Start 07/01/16 at 07:00 Glucose (Glutose) 15 gm Q15M PRN BUCCAL DECREASED GLUCOSE; Start 07/01/16 at 07 :00 Atorvastatin Calcium (Lipitor) 40 mg HS PO Last administered on 07/02/16 20:30 ; Admin Dose 40 MG; Start 07/01/16 at 21:00 Baclofen (Lioresal) 10 mg TID PO Last administered on 07/03/16 08:15; Admin Dose 10 MG; Start 07/01/16 at 21:00 Clonazepam (Klonopin) 0.5 mg TID PO Last administered on 07/03/16 08:15; Admin Dose 0.5 MG; Start 07/01/16 at 19:00 Docusate Sodium (Colace) 250 mg DAILY PRN PO CONSTIPATION; Start 07/01/16 at 13 :30 Duloxetine HCl (Cymbalta) 60 mg DAILY PO Last administered on 07/03/16 08:16; Admin Dose 60 MG; Start 07/02/16 at 09:00 Hydromorphone HCl (Dilaudid) 2 mg TID PRN PO pain Last administered on 17:26; Admin Dose 2 MG; Start 07/01/16 at 13:30 Metoprolol Succinate (Toprol Xl) 100 mg DAILY PO Last administered on 08:17; Admin Dose 100 MG; Start 07/02/16 at 09:00 Quetiapine Fumarate (Seroquel) 400 mg QHS PO Last administered on 07/02/16 20: 31; Admin Dose 400 MG; Start 07/01/16 at 21:00 Pregabalin (Lyrica) 50 mg BID PO Last administered on 07/03/16 08:15; Admin Dose 50 MG; Start 07/01/16 at 21:00 Furosemide 20 mg 20 mg DAILY IV Last administered on 07/03/16 08:16; Admin Dose 20 MG; Start 07/03/16 at 09:00 Ceftriaxone Sodium (Rocephin) 50 ml @ 100 mls/hr Q24H IVPB Last administered on 07/03/16 00:10; Admin Dose 100 MLS/HR; Start 07/02/16 at 23:30 SEBASTIAN RONDON MD July 03, 2016 10:50
--- NOTE | 2016-07-03 12:47 | CONS ---
Date/Time of Note Date/Time of Note DATE: 07/03/16 TIME: 12:41 Assessment/Plan Assessment/Plan Additional Assessment/Plan CT chest was reviewed from [facility] of this month which is essentially unremarkable. CT abdomen is showing pelvic mass. Chest x-ray also was reviewed which is showing interstitial prominence. Next ABG was reviewed which is showing mild hypoxemia. Next Assessment recommendations; 1. Patient admitted for workup of pelvic mass possibly malignancy 2. History of very light smoking. 3. History of obesity. 4. History of diabetes hypertension. Patient is cleared for surgery under general anesthesia. We will be glad to follow the patient postoperatively if required. Consultation Date/Type/Reason Admit Date/Time July 01, 2016 at 04:43 Date of Consultation: July 03, 2016 Type of Consultation: Pulmonary Reason for Consultation Memory consultations requested for preop clearance for ovarian surgery. History presenting; patient is a pleasant 61-year-old F [place] lady who came to the hospital yesterday sent over from by her doctor for workup and evaluation of pelvic mass which possibly could be malignant. According to the patient she went to the emergency room in February of this year with rectal bleeding at that time further imaging studies were done which showed a pelvic mass and the patient was supposed to follow-up with her doctor which evidently she did not until quite recently patient still complains of occasional abdominal pain but denies any shortness of breath at rest but does complain of chronic stable dyspnea on exertion. Denies any cough, wheezing, sputum production or chest pain. Denies any nausea vomiting. Past medical history; 1. History of diabetes, 2. Neuropathy. 3. Hypertension. 4. History of cholecystectomy. Medications; reviewed. Allergies; none. Social history; patient smokes 2 cigarettes a day. According to her she was never a heavy smoker. Most of any alcohol or drug abuse. Family history she is single. No history of any malignancy in the family. Occupational history; patient is on disability. Review of systems; denies any headache, visual changes. Sinus symptoms. Dysphagia. Any chest pain angina. Any cough, sputum production. Complains of chronic right lower quadrant abdominal pain. Denies any melena, hematochezia. Any edema. Any orthopnea. Does complete a stable dyspnea on exertion. Denies any weight change. Any skin changes. General exam; elderly lady, awake alert currently in no distress. Respiratory: shortness of breath (+) Gastrointestinal: no complaints Genitourinary: no complaints Social History Smoking Status: Current every day smoker Exam/Review of Systems Vital Signs Vitals Vital Signs Date Time Temp Pulse Resp B/P Pulse Ox O2 Delivery O2 Flow Rate FiO2 07/03/16 07:56 98.2 91 16 116/57 92 07/03/16 07:54 21 07/03/16 02:00 2.0 07/03/16 02:00 Nasal Cannula Intake and Output 07/02/16 07/02/16 07/03/16 15:00 23:00 07:00 Intake Total 900 ml 300 ml Balance 900 ml 300 ml Exam HEENT exam; supple neck, no JVD. No lymphadenopathy. Midline trachea. No thyromegaly. Pharynx is clear. Patient is edentulous. Pupils are midsize reactive to light. Chest examination; clear to auscultation. S1-S2 audible, no murmurs. Regular rhythm. Abdomen examination; soft, protuberant. Multiple well-healed scars are present. There is mild right lower quadrant tenderness present. Extremity examination; no peripheral edema. No clubbing. Pulses 2+ bilaterally. [employer] examination; no focal deficit. Results Result Diagram: 07/02/16 0430 07/02/16 0430 Results 24 hrs Laboratory Tests Test 07/02/16 17:24 07/02/16 20:24 07/03/16 07:52 07/03/16 11:56 Bedside Glucose 126 160 168 231 H Medications Medications Current Medications Ondansetron HCl (Zofran Inj) 4 mg Q6H PRN IV NAUSEA AND/OR VOMITING; Start at 06:30 Acetaminophen (Tylenol Tab) 650 mg Q6H PRN PO PAIN LEVEL 1-3 OR FEVER; Start at 06:30 Morphine Sulfate (morphine) 2 mg Q4H PRN IV SEVERE PAIN LEVEL 7-10 Last administered on 07/02/16t 20:33; Admin Dose 2 MG; Start 07/01/16 at 06:30 Docusate Sodium (Colace) 100 mg Q12H PRN PO CONSTIPATION; Start 07/01/16 at 06: 30 Magnesium Hydroxide (Milk Of Mag) 30 ml DAILY PRN PO CONSTIPATION; Start at 06:30 Bisacodyl (Dulcolax) 5 mg DAILY PRN PO CONSTIPATION; Start 07/01/16 at 06:30 Pantoprazole (Protonix Iv) 40 mg DAILY@06 IV Last administered on 07/03/16 06: 14; Admin Dose 40 MG; Start 07/02/16 at 06:00 Enoxaparin Sodium (Lovenox) 40 mg DAILY SC Last administered on 07/03/16 08:18 ; Admin Dose 40 MG; Start 07/01/16 at 09:00 Diagnostic Test (Pha) (Accu-Chek) 1 ea 02 XX ; Start 07/02/16 at 02:00 Miscellaneous Information 1 ea NOTE XX ; Start 07/01/16 at 07:00 Glucose (Glutose) 15 gm Q15M PRN PO DECREASED GLUCOSE; Start 07/01/16 at 07:00 Glucose (Glutose) 22.5 gm Q15M PRN PO DECREASED GLUCOSE; Start 07/01/16 at 07: 00 Dextrose (D50w Syringe) 25 ml Q15M PRN IV DECREASED GLUCOSE; Start 07/01/16 at 07:00 Dextrose (D50w Syringe) 50 ml Q15M PRN IV DECREASED GLUCOSE; Start 07/01/16 at 07:00 Glucagon (Glucagen) 1 mg Q15M PRN IM DECREASED GLUCOSE; Start 07/01/16 at 07:00 Glucose (Glutose) 15 gm Q15M PRN BUCCAL DECREASED GLUCOSE; Start 07/01/16 at 07 :00 Atorvastatin Calcium (Lipitor) 40 mg HS PO Last administered on 07/02/16 20:30 ; Admin Dose 40 MG; Start 07/01/16 at 21:00 Baclofen (Lioresal) 10 mg TID PO Last administered on 07/03/16 12:18; Admin Dose 10 MG; Start 07/01/16 at 21:00 Clonazepam (Klonopin) 0.5 mg TID PO Last administered on 07/03/16 12:18; Admin Dose 0.5 MG; Start 07/01/16 at 19:00 Docusate Sodium (Colace) 250 mg DAILY PRN PO CONSTIPATION; Start 07/01/16 at 13 :30 Duloxetine HCl (Cymbalta) 60 mg DAILY PO Last administered on 07/03/16 08:16; Admin Dose 60 MG; Start 07/02/16 at 09:00 Hydromorphone HCl (Dilaudid) 2 mg TID PRN PO pain Last administered on 17:26; Admin Dose 2 MG; Start 07/01/16 at 13:30 Metoprolol Succinate (Toprol Xl) 100 mg DAILY PO Last administered on 08:17; Admin Dose 100 MG; Start 07/02/16 at 09:00 Quetiapine Fumarate (Seroquel) 400 mg QHS PO Last administered on 07/02/16 20: 31; Admin Dose 400 MG; Start 07/01/16 at 21:00 Pregabalin (Lyrica) 50 mg BID PO Last administered on 07/03/16 08:15; Admin Dose 50 MG; Start 07/01/16 at 21:00 Furosemide 20 mg 20 mg DAILY IV Last administered on 07/03/16 08:16; Admin Dose 20 MG; Start 07/03/16 at 09:00 Ceftriaxone Sodium (Rocephin) 50 ml @ 100 mls/hr Q24H IVPB Last administered on 07/03/16 00:10; Admin Dose 100 MLS/HR; Start 07/02/16 at 23:30 GREGORY ALATORRE July 03, 2016 12:47
[2016-07-03 20:04] VITALS: BP 114/61; RESP 17
--- NOTE | 2016-07-03 20:29 | RADRPT ---
Echocardiogram Report Patient Name: ALBERT ADAME Gender: Female Date: 1955 Study Date: 03-Jul-2016 Kelp Gatherer: Kwame Sharma [facility] Location: 2246 Ref. Physician: LATRICIA WORLEY Quality: Technically Difficult Study Procedures: Transthoracic echocardiogram with complete 2D, M-Mode, and doppler examination. Indications: Shortness of breath. 2D/M Mode Doppler Measurement Value Normal Ranges Measurement Value Normal Ranges LVIDd 2D 4.1 3.5 - 5.6 cm AV Peak John Paul 1.2 m/sec LVIDs 2D 2.6 2.1 - 4.1 cm AV Peak PG 5.8 mmHg LVPWd 2D 1.5 0.6 - 1.1 cm LVOT Peak John Paul 1.1 m/sec IVSd 2D 1.5 0.6 - 1.1 cm LVOT Peak PG 4.5 mmHg AoR Diam 2D 3.0 2.0 - 3.7 cm MV E Peak John Paul 0.5 m/sec EDV 2D 75.7 cm3 MV A Peak John Paul 0.8 m/sec ESV 2D 16.9 cm3 MV E/A 0.6 LA Dimen 2D 3.4 2.3 - 4.0 cm MV Decel Time 212 msec MV Decel Harris 3 MV E/A 0.6 Findings Left Ventricle: Hyperdynamic left ventricular systolic function. Normal left ventricular cavity size. Moderate concentric left ventricular hypertrophy. Ejection fraction is visually estimated at >65 %. Tissue Doppler/Mitral Doppler indices are consistent with impaired relaxation (Stage I diastolic dysfunction). Right Ventricle: Normal right ventricular size. Normal right ventricular systolic function. Left Atrium: The left atrium is normal in size. Right Atrium: The right atrium is normal in size. Mitral Valve: Normal appearance and function of the mitral valve with trace physiologic regurgitation. Aortic Valve: Normal appearance of the aortic valve. No significant aortic stenosis or insufficiency. Tricuspid Valve: Normal appearance of the tricuspid valve. Unable to obtain RVSP due to minimal presence of tricuspid regurgitation. Pulmonic Valve: Normal pulmonic valve appearance. Pericardium: Normal pericardium with no significant pericardial effusion. Aorta: Normal aortic root. IVC: The IVC is not well visualized. Conclusions 1.Hyperdynamic left ventricular systolic function. Normal left ventricular cavity size. Moderate concentric left ventricular hypertrophy. Ejection fraction is visually estimated at >65 %. Tissue Doppler/Mitral Doppler indices are consistent with impaired relaxation (Stage I diastolic dysfunction). 2.Normal appearance and function of the mitral valve with trace physiologic regurgitation. 3.Normal appearance of the tricuspid valve. Unable to obtain RVSP due to minimal presence of tricuspid regurgitation. Electronically Signed By: Thai Perea 03-Jul-2016 20:29:27 -0700 Patient Name: ALBERT ADAME Study Date: 03-Jul-[id number]
--- NOTE | 2016-07-03 20:35 | RADRPT ---
Vent Rate: 77 bpm RR Interval: 0 msec CO Interval: 158 msec QRS Duration: 92 msec QT Interval: 408 msec QTC Interval: 461 msec P-R-T [place]: 47 - 12 - 20 degrees Normal sinus rhythm Normal ECG Electronically Signed By: Thai Perea [id number]
--- NOTE | 2016-07-03 20:37 | PN ---
Date/Time of Note Date/Time of Note DATE: 07/03/16 TIME: 20:36 Assessment/Plan VTE Prophylaxis VTE Prophylaxis Intervention: other Lines/Catheters IV Catheter Type (from Nrs): Saline Lock Assessment/Plan Chief Complaint/Hosp Course IMPRESSION: 1. The patient has complex pelvic cystic structure 11.8 x 11.2 x 10.6 cm in size. 2. The patient has hypernatremia. 3. The patient has renal insufficiency. 4. History of diabetes mellitus. 5. Dyslipidemia. 6. History of hypertension. 7. History of cholecystectomy. 9 copd 10 poss pneumonia/atelectasis plan hhn antibiotic PULMONARY CONSULT Problems: Subjective 24 Hr Interval Summary Respiratory: shortness of breath (BETTER) Cardiovascular: no complaints Gastrointestinal: no complaints Exam/Review of Systems Vital Signs Vitals Vital Signs Date Time Temp Pulse Resp B/P Pulse Ox O2 Delivery O2 Flow Rate FiO2 07/03/16 20:04 98.2 86 17 114/61 100 07/03/16 19:53 2.0 07/03/16 19:53 21 07/03/16 13:35 Nasal Cannula Intake and Output 07/02/16 07/02/16 07/03/16 15:00 23:00 07:00 Intake Total 900 ml 300 ml Balance 900 ml 300 ml Exam Neck: supple Respiratory: clear to auscultation Cardiovascular: regular rate and rhythm Gastrointestinal: soft Results Result Diagram: 07/02/16 0430 07/02/16 0430 Results 24 hrs Laboratory Tests Test 07/03/16 07:52 07/03/16 11:56 07/03/16 17:19 Bedside Glucose 168 231 H 189 Medications Medications Current Medications Ondansetron HCl (Zofran Inj) 4 mg Q6H PRN IV NAUSEA AND/OR VOMITING; Start at 06:30 Acetaminophen (Tylenol Tab) 650 mg Q6H PRN PO PAIN LEVEL 1-3 OR FEVER; Start at 06:30 Morphine Sulfate (morphine) 2 mg Q4H PRN IV SEVERE PAIN LEVEL 7-10 Last administered on 07/02/16t 20:33; Admin Dose 2 MG; Start 07/01/16 at 06:30 Docusate Sodium (Colace) 100 mg Q12H PRN PO CONSTIPATION; Start 07/01/16 at 06: 30 Magnesium Hydroxide (Milk Of Mag) 30 ml DAILY PRN PO CONSTIPATION; Start at 06:30 Bisacodyl (Dulcolax) 5 mg DAILY PRN PO CONSTIPATION; Start 07/01/16 at 06:30 Pantoprazole (Protonix Iv) 40 mg DAILY@06 IV Last administered on 07/03/16 06: 14; Admin Dose 40 MG; Start 07/02/16 at 06:00 Enoxaparin Sodium (Lovenox) 40 mg DAILY SC Last administered on 07/03/16 08:18 ; Admin Dose 40 MG; Start 07/01/16 at 09:00 Diagnostic Test (Pha) (Accu-Chek) 1 ea 02 XX ; Start 07/02/16 at 02:00 Miscellaneous Information 1 ea NOTE XX ; Start 07/01/16 at 07:00 Glucose (Glutose) 15 gm Q15M PRN PO DECREASED GLUCOSE; Start 07/01/16 at 07:00 Glucose (Glutose) 22.5 gm Q15M PRN PO DECREASED GLUCOSE; Start 07/01/16 at 07: 00 Dextrose (D50w Syringe) 25 ml Q15M PRN IV DECREASED GLUCOSE; Start 07/01/16 at 07:00 Dextrose (D50w Syringe) 50 ml Q15M PRN IV DECREASED GLUCOSE; Start 07/01/16 at 07:00 Glucagon (Glucagen) 1 mg Q15M PRN IM DECREASED GLUCOSE; Start 07/01/16 at 07:00 Glucose (Glutose) 15 gm Q15M PRN BUCCAL DECREASED GLUCOSE; Start 07/01/16 at 07 :00 Atorvastatin Calcium (Lipitor) 40 mg HS PO Last administered on 07/02/16 20:30 ; Admin Dose 40 MG; Start 07/01/16 at 21:00 Baclofen (Lioresal) 10 mg TID PO Last administered on 07/03/16 12:18; Admin Dose 10 MG; Start 07/01/16 at 21:00 Clonazepam (Klonopin) 0.5 mg TID PO Last administered on 07/03/16 12:18; Admin Dose 0.5 MG; Start 07/01/16 at 19:00 Docusate Sodium (Colace) 250 mg DAILY PRN PO CONSTIPATION; Start 07/01/16 at 13 :30 Duloxetine HCl (Cymbalta) 60 mg DAILY PO Last administered on 07/03/16 08:16; Admin Dose 60 MG; Start 07/02/16 at 09:00 Hydromorphone HCl (Dilaudid) 2 mg TID PRN PO pain Last administered on 17:26; Admin Dose 2 MG; Start 07/01/16 at 13:30 Metoprolol Succinate (Toprol Xl) 100 mg DAILY PO Last administered on 08:17; Admin Dose 100 MG; Start 07/02/16 at 09:00 Quetiapine Fumarate (Seroquel) 400 mg QHS PO Last administered on 07/02/16 20: 31; Admin Dose 400 MG; Start 07/01/16 at 21:00 Pregabalin (Lyrica) 50 mg BID PO Last administered on 07/03/16 08:15; Admin Dose 50 MG; Start 07/01/16 at 21:00 Furosemide 20 mg 20 mg DAILY IV Last administered on 07/03/16 08:16; Admin Dose 20 MG; Start 07/03/16 at 09:00 Ceftriaxone Sodium (Rocephin) 50 ml @ 100 mls/hr Q24H IVPB Last administered on 07/03/16 00:10; Admin Dose 100 MLS/HR; Start 07/02/16 at 23:30 LATRICIA WORLEY MD July 03, 2016 20:37
[2016-07-03] MEDS: ATORVASTATIN 40 MG TAB PO SCH (20:45)
[2016-07-03] MEDS: QUETIAPINE 100 MG TAB PO SCH (20:45)
[2016-07-04] MEDS: CEFTRIAXONE 1 GM/50 ML (PMX) 50 ML IVPB SCH ×2 (00:04→23:24)
[2016-07-04] MEDS: ACCU-CHEK XX SCH (01:40)
[2016-07-04] MEDS: ALBUTEROL/IPRATROPIUM (NEB) 3 ML AMP HHN SCH ×4 (02:04→19:49)
[2016-07-04] MEDS: PANTOPRAZOLE 40 MG INJ IV SCH (05:22)
[2016-07-04 07:38] VITALS: BP 126/60; PULSE 85; RESP 18
[2016-07-04] MEDS: INSULIN ASPART [NOVOLOG] 3 ML PEN SC SCH ×4 (08:00→20:35)
[2016-07-04] MEDS ORDERED: PEG/ELECTROLYTES 4L BTL PO SCH (09:00)
[2016-07-04] MEDS: ENOXAPARIN 40 MG/0.4 ML SYG SC SCH (09:00)
[2016-07-04] MEDS: DULOXETINE 30 MG CAP DR PO SCH (09:17)
[2016-07-04] MEDS: METOPROLOL (XL) 100 MG TAB PO SCH (09:18)
[2016-07-04] MEDS: clonAZEPAM 0.5 MG TAB PO SCH ×3 (09:18→20:35)
[2016-07-04] MEDS: PREGABALIN 25 MG CAP PO SCH ×2 (09:18→20:34)
[2016-07-04] MEDS: BACLOFEN 10 MG TAB PO SCH ×3 (09:18→20:35)
[2016-07-04] MEDS: FUROSEMIDE 20 MG INJ IV SCH (09:19)
--- NOTE | 2016-07-04 11:48 | CONS ---
Date/Time of Note Date/Time of Note DATE: 07/04/16 TIME: 11:46 Assessment/Plan Assessment/Plan Additional Assessment/Plan Assessment recommendations; 1. Patient admitted for abdominal pain due to pelvic mass. 2. Scant smoker, currently have excellent clinical status. Next Continue current treatment. Patient has been cleared for general anesthesia for abdominal surgery. Consultation Date/Type/Reason Admit Date/Time July 01, 2016 at 04:43 Initial Consult Date 07/03/16 Type of Consultation: Pulmonary 24 HR Interval Summary Free Text/Dictation Patient condition is stable. Denies any shortness of breath, nausea vomiting, fever chills. General exam; elderly lady, awake alert currently in no distress. Exam/Review of Systems Vital Signs Vitals Vital Signs Date Time Temp Pulse Resp B/P Pulse Ox O2 Delivery O2 Flow Rate FiO2 07/04/16 07:38 98.1 85 18 126/60 93 Nasal Cannula 2.0 07/03/16 19:53 21 Intake and Output 07/03/16 07/03/16 07/04/16 15:00 23:00 07:00 Intake Total 520 ml 450 ml Balance 520 ml 450 ml Exam HEENT exam is; supple neck, no JVD PD. No lymphadenopathy. Midline trachea. No thyromegaly. No neck masses. Chest examination; clear to auscultation. S1-S2 audible, no murmurs. Regular rhythm. Abdomen examination; mild right lower quadrant tenderness. Abdomen is protuberant. Bowel sounds audible. No organomegaly. Extremity examination; no peripheral edema. INTERVENTIONAL RADIOLOGY TECHNOLOGIST examination; no focal deficit. Results Result Diagram: 07/02/16 0430 07/02/16 0430 Results 24 hrs Laboratory Tests Test 07/03/16 11:56 07/03/16 17:19 07/03/16 20:43 07/04/16 08:10 Bedside Glucose 231 H 189 137 134 Medications Medications Current Medications Ondansetron HCl (Zofran Inj) 4 mg Q6H PRN IV NAUSEA AND/OR VOMITING; Start at 06:30 Acetaminophen (Tylenol Tab) 650 mg Q6H PRN PO PAIN LEVEL 1-3 OR FEVER; Start at 06:30 Morphine Sulfate (morphine) 2 mg Q4H PRN IV SEVERE PAIN LEVEL 7-10 Last administered on 07/02/16t 20:33; Admin Dose 2 MG; Start 07/01/16 at 06:30 Docusate Sodium (Colace) 100 mg Q12H PRN PO CONSTIPATION; Start 07/01/16 at 06: 30 Magnesium Hydroxide (Milk Of Mag) 30 ml DAILY PRN PO CONSTIPATION; Start at 06:30 Bisacodyl (Dulcolax) 5 mg DAILY PRN PO CONSTIPATION; Start 07/01/16 at 06:30 Pantoprazole (Protonix Iv) 40 mg DAILY@06 IV Last administered on 07/04/16 05: 22; Admin Dose 40 MG; Start 07/02/16 at 06:00 Enoxaparin Sodium (Lovenox) 40 mg DAILY SC Last administered on 07/03/16 08:18 ; Admin Dose 40 MG; Start 07/01/16 at 09:00 Diagnostic Test (Pha) (Accu-Chek) 1 ea 02 XX ; Start 07/02/16 at 02:00 Miscellaneous Information 1 ea NOTE XX ; Start 07/01/16 at 07:00 Glucose (Glutose) 15 gm Q15M PRN PO DECREASED GLUCOSE; Start 07/01/16 at 07:00 Glucose (Glutose) 22.5 gm Q15M PRN PO DECREASED GLUCOSE; Start 07/01/16 at 07: 00 Dextrose (D50w Syringe) 25 ml Q15M PRN IV DECREASED GLUCOSE; Start 07/01/16 at 07:00 Dextrose (D50w Syringe) 50 ml Q15M PRN IV DECREASED GLUCOSE; Start 07/01/16 at 07:00 Glucagon (Glucagen) 1 mg Q15M PRN IM DECREASED GLUCOSE; Start 07/01/16 at 07:00 Glucose (Glutose) 15 gm Q15M PRN BUCCAL DECREASED GLUCOSE; Start 07/01/16 at 07 :00 Atorvastatin Calcium (Lipitor) 40 mg HS PO Last administered on 07/03/16 20:45 ; Admin Dose 40 MG; Start 07/01/16 at 21:00 Baclofen (Lioresal) 10 mg TID PO Last administered on 07/04/16 09:18; Admin Dose 10 MG; Start 07/01/16 at 21:00 Clonazepam (Klonopin) 0.5 mg TID PO Last administered on 07/04/16 09:18; Admin Dose 0.5 MG; Start 07/01/16 at 19:00 Docusate Sodium (Colace) 250 mg DAILY PRN PO CONSTIPATION; Start 07/01/16 at 13 :30 Duloxetine HCl (Cymbalta) 60 mg DAILY PO Last administered on 07/04/16 09:17; Admin Dose 60 MG; Start 07/02/16 at 09:00 Hydromorphone HCl (Dilaudid) 2 mg TID PRN PO pain Last administered on 17:26; Admin Dose 2 MG; Start 07/01/16 at 13:30 Metoprolol Succinate (Toprol Xl) 100 mg DAILY PO Last administered on 09:18; Admin Dose 100 MG; Start 07/02/16 at 09:00 Quetiapine Fumarate (Seroquel) 400 mg QHS PO Last administered on 07/03/16 20: 45; Admin Dose 400 MG; Start 07/01/16 at 21:00 Pregabalin (Lyrica) 50 mg BID PO Last administered on 07/04/16 09:18; Admin Dose 50 MG; Start 07/01/16 at 21:00 Furosemide 20 mg 20 mg DAILY IV Last administered on 07/04/16 09:19; Admin Dose 20 MG; Start 07/03/16 at 09:00 Ceftriaxone Sodium (Rocephin) 50 ml @ 100 mls/hr Q24H IVPB Last administered on 07/04/16 00:04; Admin Dose 100 MLS/HR; Start 07/02/16 at 23:30 GREGORY ALATORRE July 04, 2016 11:48
[2016-07-04] MEDS: morphine 2 MG INJ IV PRN (15:36)
--- NOTE | 2016-07-04 19:48 | PN ---
Date/Time of Note Date/Time of Note DATE: 07/04/16 TIME: 19:47 Assessment/Plan VTE Prophylaxis VTE Prophylaxis Intervention: other Lines/Catheters IV Catheter Type (from Nrs): Saline Lock Assessment/Plan Chief Complaint/Hosp Course IMPRESSION: 1. The patient has complex pelvic cystic structure 11.8 x 11.2 x 10.6 cm in size. 2. The patient has hypernatremia. 3. The patient has renal insufficiency. 4. History of diabetes mellitus. 5. Dyslipidemia. 6. History of hypertension. 7. History of cholecystectomy. 9 copd 10 poss pneumonia/atelectasis plan hhn antibiotic cardio clearance Problems: Subjective 24 Hr Interval Summary Respiratory: no complaints Cardiovascular: no complaints Exam/Review of Systems Vital Signs Vitals Vital Signs Date Time Temp Pulse Resp B/P Pulse Ox O2 Delivery O2 Flow Rate FiO2 07/04/16 18:34 2.0 07/04/16 14:25 75 20 93 21 07/04/16 07:38 98.1 126/60 Nasal Cannula Intake and Output 07/03/16 07/03/16 07/04/16 15:00 23:00 07:00 Intake Total 520 ml 450 ml Balance 520 ml 450 ml Exam Neck: supple Respiratory: clear to auscultation Cardiovascular: regular rate and rhythm Gastrointestinal: soft Musculoskeletal: nl extremities to inspection Results Result Diagram: 07/02/16 0430 07/02/16 0430 Results 24 hrs Laboratory Tests Test 07/03/16 20:43 07/04/16 08:10 07/04/16 12:02 07/04/16 17:05 Bedside Glucose 137 134 176 111 Medications Medications Current Medications Ondansetron HCl (Zofran Inj) 4 mg Q6H PRN IV NAUSEA AND/OR VOMITING; Start at 06:30 Acetaminophen (Tylenol Tab) 650 mg Q6H PRN PO PAIN LEVEL 1-3 OR FEVER; Start at 06:30 Morphine Sulfate (morphine) 2 mg Q4H PRN IV SEVERE PAIN LEVEL 7-10 Last administered on 07/04/16t 15:36; Admin Dose 2 MG; Start 07/01/16 at 06:30 Docusate Sodium (Colace) 100 mg Q12H PRN PO CONSTIPATION; Start 07/01/16 at 06: 30 Magnesium Hydroxide (Milk Of Mag) 30 ml DAILY PRN PO CONSTIPATION; Start at 06:30 Bisacodyl (Dulcolax) 5 mg DAILY PRN PO CONSTIPATION; Start 07/01/16 at 06:30 Pantoprazole (Protonix Iv) 40 mg DAILY@06 IV Last administered on 07/04/16 05: 22; Admin Dose 40 MG; Start 07/02/16 at 06:00 Enoxaparin Sodium (Lovenox) 40 mg DAILY SC Last administered on 07/03/16 08:18 ; Admin Dose 40 MG; Start 07/01/16 at 09:00 Diagnostic Test (Pha) (Accu-Chek) 1 ea 02 XX ; Start 07/02/16 at 02:00 Miscellaneous Information 1 ea NOTE XX ; Start 07/01/16 at 07:00 Glucose (Glutose) 15 gm Q15M PRN PO DECREASED GLUCOSE; Start 07/01/16 at 07:00 Glucose (Glutose) 22.5 gm Q15M PRN PO DECREASED GLUCOSE; Start 07/01/16 at 07: 00 Dextrose (D50w Syringe) 25 ml Q15M PRN IV DECREASED GLUCOSE; Start 07/01/16 at 07:00 Dextrose (D50w Syringe) 50 ml Q15M PRN IV DECREASED GLUCOSE; Start 07/01/16 at 07:00 Glucagon (Glucagen) 1 mg Q15M PRN IM DECREASED GLUCOSE; Start 07/01/16 at 07:00 Glucose (Glutose) 15 gm Q15M PRN BUCCAL DECREASED GLUCOSE; Start 07/01/16 at 07 :00 Atorvastatin Calcium (Lipitor) 40 mg HS PO Last administered on 07/03/16 20:45 ; Admin Dose 40 MG; Start 07/01/16 at 21:00 Baclofen (Lioresal) 10 mg TID PO Last administered on 07/04/16 14:40; Admin Dose 10 MG; Start 07/01/16 at 21:00 Clonazepam (Klonopin) 0.5 mg TID PO Last administered on 07/04/16 14:44; Admin Dose 0.5 MG; Start 07/01/16 at 19:00 Docusate Sodium (Colace) 250 mg DAILY PRN PO CONSTIPATION; Start 07/01/16 at 13 :30 Duloxetine HCl (Cymbalta) 60 mg DAILY PO Last administered on 07/04/16 09:17; Admin Dose 60 MG; Start 07/02/16 at 09:00 Hydromorphone HCl (Dilaudid) 2 mg TID PRN PO pain Last administered on 17:26; Admin Dose 2 MG; Start 07/01/16 at 13:30 Metoprolol Succinate (Toprol Xl) 100 mg DAILY PO Last administered on 09:18; Admin Dose 100 MG; Start 07/02/16 at 09:00 Quetiapine Fumarate (Seroquel) 400 mg QHS PO Last administered on 07/03/16 20: 45; Admin Dose 400 MG; Start 07/01/16 at 21:00 Pregabalin (Lyrica) 50 mg BID PO Last administered on 07/04/16 09:18; Admin Dose 50 MG; Start 07/01/16 at 21:00 Furosemide 20 mg 20 mg DAILY IV Last administered on 07/04/16 09:19; Admin Dose 20 MG; Start 07/03/16 at 09:00 Ceftriaxone Sodium (Rocephin) 50 ml @ 100 mls/hr Q24H IVPB Last administered on 07/04/16 00:04; Admin Dose 100 MLS/HR; Start 07/02/16 at 23:30 LATRICIA WORLEY MD July 04, 2016 19:48
[2016-07-04] MEDS ORDERED: FUROSEMIDE 20 MG INJ IV ONE (20:00)
[2016-07-04 20:19] VITALS: BP 127/72; RESP 18
[2016-07-04] MEDS: ATORVASTATIN 40 MG TAB PO SCH (20:35)
[2016-07-04] MEDS: QUETIAPINE 100 MG TAB PO SCH (20:35)
--- NOTE | 2016-07-04 21:45 | CONS ---
DATE OF ADMISSION: 07/01/2016 DATE OF CONSULTATION: 07/04/2016 REASON FOR CONSULTATION: Preoperative evaluation. REQUESTING PHYSICIAN: Dr. Roderick Worley. HISTORY OF PRESENT ILLNESS: Ms. Oropeza is a very pleasant 61-year-old female with a history o f hypertension, diabetes mellitus, dyslipidemia, ongoing tobacco usage, was found to have a pelvic m ass with abdominal pain and ongoing worsening weakness. The patient subsequently presented to [facility]. Upon arrival, temperature 98.1, blood pressure 140/60, pulse 82, respirato ry rate 20, saturating 96%. The patient's labs revealed white count 10.6, hemoglobin 4.9, platelet count 257. Sodium 145, potassium 3.7, creatinine 1.0, BUN 10. AST 77, ALT 61, lipase 71. Albumin 1.0, albumin 4.0. CA-125 at 7.1. CEA 1.4. White cell 5.9, hemoglobin 14, platelet count 230. ABG revealing a pH of 7.357, a PaO2 of 69, a pCO2 of 47. The patient underwent a chest x-ray revealing no evidence for acute intrathoracic pathology. The patient underwent a chest CT revealing no CT ev idence of acute pathology in the chest. Diffuse centrilobular emphysematous changes. Shrapnel on t he right posterior chest wall. The patient underwent abdominopelvic CT revealing complex pelvic cys tic structure consistent with clinical history of ovarian cancer, status post cholecystectomy with b iliary dilatation, severe degenerative joint disease of the right hip. Stool-filled large bowel. I n a followup chest x-ray today now revealing new interstitial airspace opacity which may be related to compressive changes, I am really concerned for pulmonary edema and/or multifocal pneumonia. The patient has been consulted by surgery with need for possible laparoscopic bilateral salpingo-oophore ctomy and hysterectomy and possibly need to correct to an open procedure to remove pelvic mass. The patient, at this time, states she is not doing much in the way of social activities, used a walker, denies chest pain, prior CT, congestive heart failure. PAST MEDICAL HISTORY: As above in HPI. MEDICATIONS CURRENTLY IN HOSPITAL: 1. Lasix 20 mg IV daily. 2. Ceftriaxone. 3. DuoNebs. 4. Cymbalta. 5. Toprol XL 100 mg daily. 6. Protonix 40 mg IV daily. 7. Lipitor 40 mg at bedtime. 8. Baclofen 10 mg t.i.d. 9. Seroquel 40 mg at bedtime. 10. Lyrica quantity 0.5 mg p.o. t.i.d. 11. Dilaudid p.r.n. 12. Lovenox p.r.n. ALLERGIES: NO KNOWN DRUG ALLERGIES. SOCIAL HISTORY: Positive tobacco, social ETOH, no illicit drug use. FAMILY HISTORY: No history of sudden cardiac or early CAD. REVIEW OF SYSTEMS: As above in HPI. CONSTITUTIONAL: No fevers, chills. PULMONARY: No current shortness of breath. CARDIOVASCULAR: No current chest pain. GASTROINTESTINAL: No vomiting. GENITOURINARY: No hematuria. Positive pelvic mass. PSYCHIATRIC: History of psychiatric history. NEUROLOGICAL: No documented history of CVA. PHYSICAL EXAMINATION: VITAL SIGNS: Temperature of 98.4, blood pressure most recently 126/60, pulse 85, respiratory 18, sa turating 93% on room air. GENERAL: The patient is alert, awake, in no acute distress. NECK: JVP approximately 9 cm water. CHEST: Fair movement throughout with decreased breath sounds at bases bilaterally. HEART: Regular rate and rhythm. Normal S1, S2, I/ systolic murmur, nondisplaced PMI. ABDOMEN: Positive bowel sounds, soft. EXTREMITIES: No pitting edema, 1+ pulses bilaterally posterior tibial. LABORATORY DATA: Most recently from today, sodium 143, potassium 3.5, creatinine 0.9, BUN of 12. A ST 133, ALT 93, white count 5.9, hemoglobin 14, platelet count 230. IMAGING STUDIES: As above in HPI. No further imaging studies for my review at this time. ECG: Reveals normal sinus rhythm at 76, normal axis, normal intervals, isolated T-wave flattening i n aVL. A 2D echo done July 02, myself, having an EF of greater than 65% with diastolic dysfunction, tr itz mitral and tricuspid regurgitation. IMPRESSION: 1. Preoperative evaluation prior to possible laparoscopic versus open surgery for removal of a pelv ic mass. 2. Hypertension. 3. Dyslipidemia. 4. Abnormal electrocardiogram with nonspecific ST and T-wave abnormalities. 5. Probable chronic obstructive pulmonary disease. 6. Questionable congestive heart failure by chest x-ray, diastolic, acute on chronic. 7. Diabetes mellitus. RECOMMENDATIONS: 1. At this time, the patient has 2 troponins that have been drawn approximately 2 days apart, both negative, has . No significant valve abnormalities and a preserved left ventricular ejection f raction. Additionally, the patient denies chest pains. The patient does have a questionable degree of heart failure by chest x-ray. Thus, at this time, would continue the patient's gentle Lasix diu resis and would maintain the patient on current beta norman to be continued pre- and postoperativel y, and if the patient has improved volume status after gentle Lasix diuresis, continues to remain he modynamically stable, then at that time, the patient will have no cardiac contraindication to procee ding to the OR at moderate risk for cardiovascular complications on current medications without furt her noninvasive evaluation. Postoperatively, would check a 12-lead EKG to assess for any significan t abnormalities and watch closely for signs and symptoms of cardiovascular complications including b ut not limited to the onset of chest pain, shortness of breath, congestive heart failure or uncontro lled cardiac arrhythmias. 2. Would discontinue the patient's current statin therapy and adjust it according to a fasting lipi d panel should be checked and will continue the patient's antibiotics and follow up all culture data . Thank you for allowing me to take part in the care of this patient. I will continue to follow very closely with you with further recommendations to be made as the patient progresses through her [facility] clinical course. Dictated By: ROB POLLOCK/ROSALIO Conf#: [id number] DID#: [id number] CC: RODERICK WORLEY MD;*EndCC*
[2016-07-05] VITALS (20 sets, daily range): BP systolic 117–154; BP diastolic 63–83; PULSE 70–88; RESP 16–29
[2016-07-05] MEDS: ACCU-CHEK XX SCH (01:30)
[2016-07-05] MEDS: morphine 2 MG INJ IV PRN ×2 (01:32→22:37)
[2016-07-05] MEDS: ALBUTEROL/IPRATROPIUM (NEB) 3 ML AMP HHN SCH ×4 (02:00→20:13)
[2016-07-05] MEDS: PANTOPRAZOLE 40 MG INJ IV SCH (05:14)
--- NOTE | 2016-07-05 06:30 | RADRPT ---
PROCEDURE: XR Chest. CLINICAL INDICATION: Shortness of breath TECHNIQUE: An AP view of the chest was obtained. COMPARISON: Chest x-ray dated 07/02/2016 FINDINGS: Small metallic densities project over the right upper lobe. There is prominence of the interstitial markings. No pleural effusion or pneumothorax is seen. The cardiomediastinal silhouette is withi n normal limits for size. The osseous structures demonstrate senescent changes. IMPRESSION: Mild prominence of the interstitial markings, may reflect mild underlying interstitial edema or freight broker agent robin lung changes. Lung aeration is significantly improved when compared to the prior examination. RPTAT: HH .Monica De La Rosa MD, MD Date Time Electronically viewed and signed by .Monica De La Rosa MD, on 07/05/2016 06:29 .G/
[2016-07-05] MEDS ORDERED: CEFAZOLIN 1 GM INJ ONE (07:00)
[2016-07-05] MEDS ORDERED: DESFLURANE 15 MIN ONE (07:00)
[2016-07-05] MEDS ORDERED: THROMBIN 5000 UNIT VIAL ONE (07:38)
[2016-07-05] MEDS ORDERED: GELATIN SIZE 100 SPONGE ONE (07:38)
[2016-07-05] MEDS ORDERED: VASOPRESSIN 20 UNITS INJ ONE (07:39)
[2016-07-05] MEDS ORDERED: METHYLENE BLUE 1% 10 ML INJ ONE (07:39)
[2016-07-05] MEDS: INSULIN ASPART [NOVOLOG] 3 ML PEN SC SCH ×4 (08:00→20:49)
[2016-07-05] MEDS ORDERED: PROPOFOL 20 ML ONE ×2 (08:11→09:11)
[2016-07-05] MEDS ORDERED: ROCURONIUM 50 MG INJ ONE ×2 (08:11→09:45)
[2016-07-05] MEDS ORDERED: MIDAZOLAM 1 MG/ML 2 ML INJ ONE (08:11)
[2016-07-05] MEDS ORDERED: METOCLOPRAMIDE 10 MG INJ ONE (08:12)
[2016-07-05] MEDS ORDERED: morphine SULFATE/PF (10 MG/10 ML) INJ ONE (08:12)
[2016-07-05] MEDS: DULOXETINE 30 MG CAP DR PO SCH (08:17)
[2016-07-05] MEDS: FUROSEMIDE 20 MG INJ IV SCH (08:17)
[2016-07-05] MEDS: BACLOFEN 10 MG TAB PO SCH ×3 (08:17→20:48)
[2016-07-05] MEDS: clonAZEPAM 0.5 MG TAB PO SCH ×3 (08:17→20:48)
[2016-07-05] MEDS: PREGABALIN 25 MG CAP PO SCH ×2 (08:17→20:48)
[2016-07-05] MEDS: METOPROLOL (XL) 100 MG TAB PO SCH (08:18)
[2016-07-05] MEDS ORDERED: PHENYLephrine (100 MCG/ML) 5ML SYG ONE (08:46)
[2016-07-05] MEDS ORDERED: HEPARIN 1000 UNITS/ML 10 ML INJ ONE (08:50)
[2016-07-05] MEDS ORDERED: ONDANSETRON 4 MG INJ IV PRN ×3 (09:00→14:30)
[2016-07-05] MEDS ORDERED: HYDROCODONE/APAP (5/325) TAB PO PRN (09:00)
[2016-07-05] MEDS ORDERED: HYDROmorphONE 1 MG/ML SYG IV PRN ×4 (09:00→14:30)
[2016-07-05] MEDS ORDERED: HYDROmorphONE 2 MG/ML SYG ONE (09:09)
[2016-07-05] MEDS ORDERED: metroNIDAZOLE 500 MG/NS (PMX) 100 ML IVPB ONE (09:13)
[2016-07-05] MEDS ORDERED: EPHEDrine SULFATE 50 MG/5 ML SYG ONE (09:23)
[2016-07-05] MEDS ORDERED: CEFAZOLIN 1 GM/50 ML (PMX) 50 ML IVPB SCH (10:00)
[2016-07-05] MEDS ORDERED: DEXAMETHASONE 4 MG/ML 1 ML INJ ONE (10:06)
--- NOTE | 2016-07-05 10:39 | PN ---
Date/Time of Note Date/Time of Note DATE: 07/05/16 TIME: 10:37 Assessment/Plan VTE Prophylaxis VTE Prophylaxis Intervention: ambulation Lines/Catheters IV Catheter Type (from Nrs): Saline Lock Assessment/Plan Chief Complaint/Hosp Course 1. Currently in surgery. The patient has complex pelvic cystic structure 11.8 x 11.2 x 10.6 cm in size. 2. The patient has hypernatremia. 3. The patient has renal insufficiency. 4. History of diabetes mellitus. 5. Dyslipidemia. 6. History of hypertension. 7. History of cholecystectomy. 9 copd 10 poss pneumonia/atelectasis Problems: Assessment/Plan 1. Will see postop Exam/Review of Systems Vital Signs Vitals Vital Signs Date Time Temp Pulse Resp B/P Pulse Ox O2 Delivery O2 Flow Rate FiO2 07/05/16 07:15 97.8 78 18 117/63 96 Room Air 07/05/16 02:03 2.0 07/04/16 19:49 21 Intake and Output 07/04/16 07/04/16 07/05/16 15:00 23:00 07:00 Intake Total 2960 ml 500 ml Balance 2960 ml 500 ml Exam obese Constitutional: alert, oriented Results Result Diagram: 07/02/16 0430 07/02/16 0430 Results 24 hrs Laboratory Tests Test 07/04/16 12:02 07/04/16 17:05 07/04/16 19:50 07/04/16 20:33 Bedside Glucose 176 111 109 Troponin I < 0.012 Test 07/05/16 06:28 Bedside Glucose 131 Medications Medications Current Medications Acetaminophen (Tylenol Tab) 650 mg Q6H PRN PO PAIN LEVEL 1-3 OR FEVER; Start at 06:30 Morphine Sulfate (morphine) 2 mg Q4H PRN IV SEVERE PAIN LEVEL 7-10 Last administered on 07/05/16t 01:32; Admin Dose 2 MG; Start 07/01/16 at 06:30 Docusate Sodium (Colace) 100 mg Q12H PRN PO CONSTIPATION; Start 07/01/16 at 06: 30 Magnesium Hydroxide (Milk Of Mag) 30 ml DAILY PRN PO CONSTIPATION; Start at 06:30 Bisacodyl (Dulcolax) 5 mg DAILY PRN PO CONSTIPATION; Start 07/01/16 at 06:30 Pantoprazole (Protonix Iv) 40 mg DAILY@06 IV Last administered on 07/05/16 05: 14; Admin Dose 40 MG; Start 07/02/16 at 06:00 Diagnostic Test (Pha) (Accu-Chek) 1 ea 02 XX ; Start 07/02/16 at 02:00 Miscellaneous Information 1 ea NOTE XX ; Start 07/01/16 at 07:00 Glucose (Glutose) 15 gm Q15M PRN PO DECREASED GLUCOSE; Start 07/01/16 at 07:00 Glucose (Glutose) 22.5 gm Q15M PRN PO DECREASED GLUCOSE; Start 07/01/16 at 07: 00 Dextrose (D50w Syringe) 25 ml Q15M PRN IV DECREASED GLUCOSE; Start 07/01/16 at 07:00 Dextrose (D50w Syringe) 50 ml Q15M PRN IV DECREASED GLUCOSE; Start 07/01/16 at 07:00 Glucagon (Glucagen) 1 mg Q15M PRN IM DECREASED GLUCOSE; Start 07/01/16 at 07:00 Glucose (Glutose) 15 gm Q15M PRN BUCCAL DECREASED GLUCOSE; Start 07/01/16 at 07 :00 Atorvastatin Calcium (Lipitor) 40 mg HS PO Last administered on 07/04/16 20:35 ; Admin Dose 40 MG; Start 07/01/16 at 21:00 Baclofen (Lioresal) 10 mg TID PO Last administered on 07/04/16 20:35; Admin Dose 10 MG; Start 07/01/16 at 21:00 Clonazepam (Klonopin) 0.5 mg TID PO Last administered on 07/04/16 20:35; Admin Dose 0.5 MG; Start 07/01/16 at 19:00 Docusate Sodium (Colace) 250 mg DAILY PRN PO CONSTIPATION; Start 07/01/16 at 13 :30 Duloxetine HCl (Cymbalta) 60 mg DAILY PO Last administered on 07/04/16 09:17; Admin Dose 60 MG; Start 07/02/16 at 09:00 Hydromorphone HCl (Dilaudid) 2 mg TID PRN PO pain Last administered on 17:26; Admin Dose 2 MG; Start 07/01/16 at 13:30 Metoprolol Succinate (Toprol Xl) 100 mg DAILY PO Last administered on 09:18; Admin Dose 100 MG; Start 07/02/16 at 09:00 Quetiapine Fumarate (Seroquel) 400 mg QHS PO Last administered on 07/04/16 20: 35; Admin Dose 400 MG; Start 07/01/16 at 21:00 Pregabalin (Lyrica) 50 mg BID PO Last administered on 07/04/16 20:34; Admin Dose 50 MG; Start 07/01/16 at 21:00 Furosemide 20 mg 20 mg DAILY IV Last administered on 07/04/16 09:19; Admin Dose 20 MG; Start 07/03/16 at 09:00 Ceftriaxone Sodium 50 ml @ 100 mls/hr Q24H IVPB Last administered on 23:24; Admin Dose 100 MLS/HR; Start 07/02/16 at 23:30 Cefazolin Sodium (Ancef 1 Gm/50 ml (Pmx)) 50 ml @ 100 mls/hr Q8H IVPB ; Start 07/05/16 at 10:00; Stop 07/06/16 at 09:59 Hydromorphone HCl (Dilaudid) 0.5 mg Q6H PRN IV PAIN LEVEL 6-10; Start 07/05/16 at 09:00 Acetaminophen/ Hydrocodone Bitart ([place] (5/325)) 1 tab Q6H PRN PO PAIN LEVEL 6 -10; Start 07/05/16 at 09:00 Ondansetron HCl (Zofran Inj) 4 mg Q6H PRN IV NAUSEA AND/OR VOMITING; Start at 09:00 Famotidine 20 mg 20 mg Q12 IV ; Start 07/05/16 at 09:00 Potassium Chloride/Lactated Ringer's (KCl/Lr) 1,010 ml @ 100 mls/hr Q10H6M IV ; Start 07/05/16 at 10:00 YAZ HOLMAN July 05, 2016 10:39 Potassium Chloride/Lactated Ringer's (KCl/Lr) 1,010 ml @ 100 mls/hr Q10H6M IV ; Start 07/05/16 at 10:00 YAZ HOLMAN July 05, 2016 10:39
[2016-07-05] MEDS ORDERED: METOPROLOL 5 MG INJ ONE (10:40)
[2016-07-05] MEDS ORDERED: ROPIVACAINE 0.5 % 30 ML VIAL ONE (10:53)
[2016-07-05] MEDS ORDERED: NEOSTIGMINE 3 MG/3 ML SYRINGE ONE ×2 (11:10→11:24)
[2016-07-05] MEDS ORDERED: GLYCOPYRROLATE 0.4 MG INJ ONE ×2 (11:10→11:24)
[2016-07-05] MEDS ORDERED: FUROSEMIDE 20 MG INJ ONE (11:25)
[2016-07-05] MEDS ORDERED: ALBUTEROL 0.083% (NEB) 2.5 MG/3 ML AMP HHN ONE (11:30)
[2016-07-05] MEDS ORDERED: hydrALAzine 20 MG INJ IV PRN (11:30)
[2016-07-05] MEDS ORDERED: LABETALOL HCL 20MG INJ IV PRN (11:30)
[2016-07-05] MEDS ORDERED: METOCLOPRAMIDE 10 MG INJ IV PRN (11:30)
[2016-07-05] MEDS ORDERED: MEPERIDINE 25 MG INJ IV PRN (11:30)
[2016-07-05] MEDS ORDERED: HYDROmorphONE (0.2 MG/ML) 10ML SYG IV PRN ×3 (11:30)
[2016-07-05] MEDS ORDERED: DIPHENHYDRAMINE 50 MG INJ IV PRN ×2 (11:30→14:30)
[2016-07-05] MEDS ORDERED: IPRATROPIUM (NEB) 0.5 MG/2.5 ML AMP HHN ONE (11:30)
[2016-07-05 12:09] LABS: ADD SCAN DIFF NO
[2016-07-05 12:12] LABS: BASOPHILS % 0.2 % (0.0-2.0); EOSINOPHILS # 0.2 10^3/ul (0.0-0.5); EOSINOPHILS % 1.6 % (0.0-7.0); HEMATOCRIT 45.1 % (37.0-47.0); HEMOGLOBIN 14.5 g/dl (12.0-16.0); LYMPHOCYTES # 1.7 10^3/ul (0.8-2.9); LYMPHOCYTES % 16.5 % (15.0-51.0); MEAN CORPUSCULAR HEMOGLOBIN 30.3 pg (29.0-33.0); MEAN CORPUSCULAR HGB CONC 32.2 g/dl (32.0-37.0); MEAN CORPUSCULAR VOLUME 94.4 fl (82.0-101.0); MEAN PLATELET VOLUME 9.4 fl (7.4-10.4); MONOCYTE # 0.4 10^3/ul (0.3-0.9); MONOCYTES % 3.6 % (0.0-11.0); NEUTROPHIL # 8.1 10^3/ul (1.6-7.5); NEUTROPHILS % 77.8 % (39.0-77.0); PLATELET COUNT 194 10^3/UL (140-415); RED BLOOD COUNT 4.78 10^6/ul (4.20-5.40); WHITE BLOOD COUNT 10.4 10^3/ul (4.8-10.8)
[2016-07-05 12:28] LABS: INR 1.07; PROTIME 13.9 Sec (12.2-14.2); PT RATIO 1.1
[2016-07-05 12:42] LABS: CALCIUM 8.8 mg/dl (8.4-10.2); CREATININE 1.01 mg/dl (0.44-1.00); POTASSIUM 3.7 mmol/L (3.5-5.1)
[2016-07-05] MEDS: FAMOTIDINE 20 MG INJ IV SCH ×2 (14:23→20:48)
[2016-07-05] MEDS: POTASSIUM CHLORIDE 20 MEQ in LACTATED RINGER'S 1,000 ML IV SCH ×2 (14:25→20:06)
[2016-07-05] MEDS ORDERED: NALOXONE (0.4 MG/ML) INJ IV PRN (14:30)
--- NOTE | 2016-07-05 16:33 | CONS ---
Date/Time of Note Date/Time of Note DATE: 07/05/16 TIME: 16:30 Assessment/Plan Assessment/Plan Chief Complaint/Hosp Course IMPRESSION: 1. Preoperative evaluation prior to possible laparoscopic versus open surgery for removal of a pelvic mass. Moderate risk for CV events. OK to proceed to or at this time on current medical therapy including BB continue pre-post-op 2. Hypertension. 3. Dyslipidemia. 4. Abnormal electrocardiogram with nonspecific ST and T-wave abnormalities. 5. Probable chronic obstructive pulmonary disease. 6. Questionable congestive heart failure by chest x-ray, diastolic, acute on chronic. 7. Diabetes mellitus. Recc: -Continue lasix/BB/statin post-op -Follow volume status closely -check post-op ecg -Continue abx's Problems: Consultation Date/Type/Reason Admit Date/Time July 01, 2016 at 04:43 Initial Consult Date 07/03/16 Type of Consultation: Cardiology Reason for Consultation preop Referring Provider: LATRICIA WORLEY Exam/Review of Systems Vital Signs Vitals Vital Signs Date Time Temp Pulse Resp B/P Pulse Ox O2 Delivery O2 Flow Rate FiO2 07/05/16 15:35 97.8 85 16 134/63 97 Nasal Cannula 4.0 07/04/16 19:49 21 Intake and Output 07/04/16 07/04/16 07/05/16 15:00 23:00 07:00 Intake Total 2960 ml 500 ml Balance 2960 ml 500 ml Exam Review of Systems: CONSTITUTIONAL: No fevers, chills. PULMONARY: No sob CARDIOVASCULAR: No chest pain/palpitations GASTROINTESTINAL: No nausea/vomiting. GENITOURINARY: No hematuria/dysuria. MUSCULOSKELETAL: No myagias/arthalgias. PSYCHIATRIC: The patient denies depression. NEUROLOGIC: No weakness Constitutional: alert Psych: no complaints Head: normocephalic ENMT: mucosa pink and moist Neck: jvd (9 cm water), supple Respiratory: diminished breath sounds (at bases/B) Cardiovascular: regular rate and rhythm Gastrointestinal: non-tender, soft Musculoskeletal: muscle tone (normal) Extremities: edema (none) Neurological: other (No focal deficits) Results Result Diagram: 07/05/16 1205 07/05/16 1205 Results 24 hrs Laboratory Tests Test 07/04/16 17:05 07/04/16 19:50 07/04/16 20:33 07/05/16 06:28 Bedside Glucose 111 109 131 Troponin I < 0.012 Test 07/05/16 12:05 07/05/16 12:27 White Blood Count 10.4 # Red Blood Count 4.78 Hemoglobin 14.5 Hematocrit 45.1 Mean Corpuscular Volume 94.4 Mean Corpuscular Hemoglobin 30.3 Mean Corpuscular Hemoglobin Concent 32.2 Red Cell Distribution Width 15.0 H Platelet Count 194 Mean Platelet Volume 9.4 Neutrophils % 77.8 H Lymphocytes % 16.5 Monocytes % 3.6 Eosinophils % 1.6 Basophils % 0.2 Nucleated Red Blood Cells % 0.0 Neutrophils # 8.1 H Lymphocytes # 1.7 Monocytes # 0.4 Eosinophils # 0.2 Basophils # 0.0 Nucleated Red Blood Cells # 0.0 Prothrombin Time 13.9 Prothrombin Time Ratio 1.1 INR International Normalized Ratio 1.07 Sodium Level 142 Potassium Level 3.7 Chloride Level 105 Carbon Dioxide Level 27 Anion Gap 14 Blood Urea Nitrogen 14 Creatinine 1.01 H Glucose Level 211 Calcium Level 8.8 Bedside Glucose 178 Medications Medications Current Medications Acetaminophen (Tylenol Tab) 650 mg Q6H PRN PO PAIN LEVEL 1-3 OR FEVER; Start at 06:30 Morphine Sulfate (morphine) 2 mg Q4H PRN IV SEVERE PAIN LEVEL 7-10 Last administered on 07/05/16 01:32; Admin Dose 2 MG; Start 07/01/16 at 06:30 Docusate Sodium (Colace) 100 mg Q12H PRN PO CONSTIPATION; Start 07/01/16 at 06: 30 Magnesium Hydroxide (Milk Of Mag) 30 ml DAILY PRN PO CONSTIPATION; Start at 06:30 Bisacodyl (Dulcolax) 5 mg DAILY PRN PO CONSTIPATION; Start 07/01/16 at 06:30 Pantoprazole (Protonix Iv) 40 mg DAILY@06 IV Last administered on 07/05/16 05: 14; Admin Dose 40 MG; Start 07/02/16 at 06:00 Diagnostic Test (Pha) (Accu-Chek) 1 ea 02 XX ; Start 07/02/16 at 02:00 Miscellaneous Information 1 ea NOTE XX ; Start 07/01/16 at 07:00 Glucose (Glutose) 15 gm Q15M PRN PO DECREASED GLUCOSE; Start 07/01/16 at 07:00 Glucose (Glutose) 22.5 gm Q15M PRN PO DECREASED GLUCOSE; Start 07/01/16 at 07: 00 Dextrose (D50w Syringe) 25 ml Q15M PRN IV DECREASED GLUCOSE; Start 07/01/16 at 07:00 Dextrose (D50w Syringe) 50 ml Q15M PRN IV DECREASED GLUCOSE; Start 07/01/16 at 07:00 Glucagon (Glucagen) 1 mg Q15M PRN IM DECREASED GLUCOSE; Start 07/01/16 at 07:00 Glucose (Glutose) 15 gm Q15M PRN BUCCAL DECREASED GLUCOSE; Start 07/01/16 at 07 :00 Atorvastatin Calcium (Lipitor) 40 mg HS PO Last administered on 07/04/16 20:35 ; Admin Dose 40 MG; Start 07/01/16 at 21:00 Baclofen (Lioresal) 10 mg TID PO Last administered on 07/05/16 14:23; Admin Dose 10 MG; Start 07/01/16 at 21:00 Clonazepam (Klonopin) 0.5 mg TID PO Last administered on 07/05/16 14:23; Admin Dose 0.5 MG; Start 07/01/16 at 19:00 Docusate Sodium (Colace) 250 mg DAILY PRN PO CONSTIPATION; Start 07/01/16 at 13 :30 Duloxetine HCl (Cymbalta) 60 mg DAILY PO Last administered on 07/04/16 09:17; Admin Dose 60 MG; Start 07/02/16 at 09:00 Hydromorphone HCl (Dilaudid) 2 mg TID PRN PO pain Last administered on 17:26; Admin Dose 2 MG; Start 07/01/16 at 13:30 Metoprolol Succinate (Toprol Xl) 100 mg DAILY PO Last administered on 09:18; Admin Dose 100 MG; Start 07/02/16 at 09:00 Quetiapine Fumarate (Seroquel) 400 mg QHS PO Last administered on 07/04/16 20: 35; Admin Dose 400 MG; Start 07/01/16 at 21:00 Pregabalin (Lyrica) 50 mg BID PO Last administered on 07/04/16 20:34; Admin Dose 50 MG; Start 07/01/16 at 21:00 Furosemide 20 mg 20 mg DAILY IV Last administered on 07/04/16 09:19; Admin Dose 20 MG; Start 07/03/16 at 09:00 Ceftriaxone Sodium (Rocephin) 50 ml @ 100 mls/hr Q24H IVPB Last administered on 07/04/16 23:24; Admin Dose 100 MLS/HR; Start 07/02/16 at 23:30 Hydromorphone HCl (Dilaudid) 0.5 mg Q6H PRN IV PAIN LEVEL 6-10; Start 07/05/16 at 09:00 Acetaminophen/ Hydrocodone Bitart ([place] (5/325)) 1 tab Q6H PRN PO PAIN LEVEL 6 -10; Start 07/05/16 at 09:00 Ondansetron HCl (Zofran Inj) 4 mg Q6H PRN IV NAUSEA AND/OR VOMITING; Start at 09:00 Famotidine 20 mg 20 mg Q12 IV Last administered on 07/05/16 14:23; Admin Dose 20 MG; Start 07/05/16 at 09:00 Potassium Chloride 20 meq/ Lactated Ringer's 1,010 ml @ 100 mls/hr Q10H6M IV Last administered on 07/05/16 14:25; Admin Dose 100 MLS/HR; Start 07/05/16 at 10:00 Cefazolin Sodium (Ancef 1 Gm/50 ml (Pmx)) 50 ml @ 100 mls/hr Q8H IVPB ; Start 07/05/16 at 16:00; Stop 07/06/16 at 08:29 Naloxone HCl (Narcan) 0.1 mg Q2M PRN IV FOR RESP RATE 8 OR LESS; Start at 14:30; Stop 07/06/16 at 14:29 Hydromorphone HCl (Dilaudid) 1 mg Q3H PRN IV BREAKTHROUGH PAIN; Start 07/05/16 at 14:30; Stop 07/06/16 at 14:29 Hydromorphone HCl (Dilaudid) 0.2 mg Q3H PRN IV PAIN LEVEL 1-5; Start 07/05/16 at 14:30; Stop 07/06/16 at 14:29 Hydromorphone HCl (Dilaudid) 0.4 mg Q3H PRN IV PAIN LEVEL 6-10; Start 07/05/16 at 14:30; Stop 07/06/16 at 14:29 Diphenhydramine HCl (Benadryl) 25 mg Q6H PRN IV ITCHING; Start 07/05/16 at 14: 30; Stop 07/06/16 at 14:29 Ondansetron HCl (Zofran Inj) 4 mg Q6H PRN IV NAUSEA AND/OR VOMITING; Start at 14:30; Stop 07/06/16 at 14:29 ROB ZELAYA July 05, 2016 16:33
[2016-07-05] MEDS: CEFAZOLIN 1 GM/50 ML (PMX) 50 ML IVPB SCH ×2 (16:47→23:47)
--- NOTE | 2016-07-05 19:32 | RADRPT ---
Vent Rate: 77 bpm RR Interval: 0 msec NE Interval: 178 msec QRS Duration: 100 msec QT Interval: 444 msec QTC Interval: 502 msec P-R-T [place]: 70 - 14 - 17 degrees Normal sinus rhythm Nonspecific T wave abnormality Prolonged QT Abnormal ECG Electronically Signed By: Thai Perea [id number]
[2016-07-05] MEDS: ATORVASTATIN 40 MG TAB PO SCH (20:48)
[2016-07-05] MEDS: QUETIAPINE 100 MG TAB PO SCH (20:48)
[2016-07-05] MEDS: CEFTRIAXONE 1 GM/50 ML (PMX) 50 ML IVPB SCH (22:37)
[2016-07-06] MEDS: ALBUTEROL/IPRATROPIUM (NEB) 3 ML AMP HHN SCH ×4 (01:31→20:14)
[2016-07-06] MEDS: ACCU-CHEK XX SCH (01:42)
[2016-07-06] MEDS: POTASSIUM CHLORIDE 20 MEQ in LACTATED RINGER'S 1,000 ML IV SCH ×3 (01:44→21:55)
[2016-07-06 05:33] LABS: ADD SCAN DIFF NO
[2016-07-06 05:38] LABS: BASOPHILS % 0.1 % (0.0-2.0); HEMATOCRIT 41.5 % (37.0-47.0); HEMOGLOBIN 13.4 g/dl (12.0-16.0); LYMPHOCYTES # 1.2 10^3/ul (0.8-2.9); LYMPHOCYTES % 10.4 % (15.0-51.0); MEAN CORPUSCULAR HEMOGLOBIN 29.8 pg (29.0-33.0); MEAN CORPUSCULAR HGB CONC 32.3 g/dl (32.0-37.0); MEAN CORPUSCULAR VOLUME 92.4 fl (82.0-101.0); MEAN PLATELET VOLUME 9.3 fl (7.4-10.4); MONOCYTE # 0.6 10^3/ul (0.3-0.9); MONOCYTES % 5.2 % (0.0-11.0); NEUTROPHIL # 9.8 10^3/ul (1.6-7.5); NEUTROPHILS % 83.9 % (39.0-77.0); PLATELET COUNT 202 10^3/UL (140-415); RED BLOOD COUNT 4.49 10^6/ul (4.20-5.40); RED CELL DISTRIBUTION WIDTH 14.6 % (11.5-14.5); WHITE BLOOD COUNT 11.7 10^3/ul (4.8-10.8)
[2016-07-06 05:48] LABS: INR 1.11; PROTIME 14.3 Sec (12.2-14.2); PT RATIO 1.1
[2016-07-06 06:00] LABS: CALCIUM 8.4 mg/dl (8.4-10.2); CREATININE 0.97 mg/dl (0.44-1.00); POTASSIUM 3.7 mmol/L (3.5-5.1)
[2016-07-06] MEDS: PANTOPRAZOLE 40 MG INJ IV SCH (06:12)
--- NOTE | 2016-07-06 08:14 | PN ---
Date/Time of Note Date/Time of Note DATE: 07/06/16 TIME: 08:11 Assessment/Plan VTE Prophylaxis VTE Prophylaxis Intervention: ambulation Lines/Catheters IV Catheter Type (from Nrsg): [place] [facility] Urinary Cath still in place: Yes Subjective 24 Hr Interval Summary Free Text/Dictation Anesthesia Note: A 61 year female s/p lap BSO POD#1 is doing fine, pain is controlled, no headache, n/v, itching, back pain or inflammation. VS stable. Exam/Review of Systems Vital Signs Vitals Vital Signs Date Time Temp Pulse Resp B/P Pulse Ox O2 Delivery O2 Flow Rate FiO2 07/06/16 07:52 76 18 98 Nasal Cannula 2.0 07/05/16 23:52 99.3 144/66 07/04/16 19:49 21 Intake and Output 07/05/16 07/05/16 07/06/16 15:00 23:00 07:00 Intake Total 1200 ml 1260 ml 1610 ml Output Total 160 ml 250 ml 1100 ml Balance 1040 ml 1010 ml 510 ml Results Result Diagram: 07/06/16 0458 07/06/16 0451 Results 24 hrs Laboratory Tests Test 07/05/16 12:05 07/05/16 12:27 07/05/16 17:13 07/05/16 20:30 White Blood Count 10.4 # Red Blood Count 4.78 Hemoglobin 14.5 Hematocrit 45.1 Mean Corpuscular Volume 94.4 Mean Corpuscular Hemoglobin 30.3 Mean Corpuscular Hemoglobin Concent 32.2 Red Cell Distribution Width 15.0 H Platelet Count 194 Mean Platelet Volume 9.4 Neutrophils % 77.8 H Lymphocytes % 16.5 Monocytes % 3.6 Eosinophils % 1.6 Basophils % 0.2 Nucleated Red Blood Cells % 0.0 Neutrophils # 8.1 H Lymphocytes # 1.7 Monocytes # 0.4 Eosinophils # 0.2 Basophils # 0.0 Nucleated Red Blood Cells # 0.0 Prothrombin Time 13.9 Prothrombin Time Ratio 1.1 INR International Normalized Ratio 1.07 Sodium Level 142 Potassium Level 3.7 Chloride Level 105 Carbon Dioxide Level 27 Anion Gap 14 Blood Urea Nitrogen 14 Creatinine 1.01 H Glucose Level 211 Calcium Level 8.8 Bedside Glucose 178 193 178 Test 07/06/16 04:51 07/06/16 04:58 Prothrombin Time 14.3 H Prothrombin Time Ratio 1.1 INR International Normalized Ratio 1.11 Sodium Level 141 Potassium Level 3.7 Chloride Level 105 Carbon Dioxide Level 28 Anion Gap 12 Blood Urea Nitrogen 13 Creatinine 0.97 Glucose Level 172 Calcium Level 8.4 White Blood Count 11.7 H Red Blood Count 4.49 Hemoglobin 13.4 Hematocrit 41.5 Mean Corpuscular Volume 92.4 Mean Corpuscular Hemoglobin 29.8 Mean Corpuscular Hemoglobin Concent 32.3 Red Cell Distribution Width 14.6 H Platelet Count 202 Mean Platelet Volume 9.3 Neutrophils % 83.9 H Lymphocytes % 10.4 L Monocytes % 5.2 Eosinophils % 0.0 Basophils % 0.1 Nucleated Red Blood Cells % 0.0 Neutrophils # 9.8 H Lymphocytes # 1.2 Monocytes # 0.6 Eosinophils # 0.0 Basophils # 0.0 Nucleated Red Blood Cells # 0.0 Medications Medications Current Medications Acetaminophen (Tylenol Tab) 650 mg Q6H PRN PO PAIN LEVEL 1-3 OR FEVER; Start at 06:30 Morphine Sulfate (morphine) 2 mg Q4H PRN IV SEVERE PAIN LEVEL 7-10 Last administered on 07/05/16 22:37; Admin Dose 2 MG; Start 07/01/16 at 06:30 Docusate Sodium (Colace) 100 mg Q12H PRN PO CONSTIPATION; Start 07/01/16 at 06: 30 Magnesium Hydroxide (Milk Of Mag) 30 ml DAILY PRN PO CONSTIPATION; Start at 06:30 Bisacodyl (Dulcolax) 5 mg DAILY PRN PO CONSTIPATION; Start 07/01/16 at 06:30 Pantoprazole (Protonix Iv) 40 mg DAILY@06 IV Last administered on 07/06/16 06: 12; Admin Dose 40 MG; Start 07/02/16 at 06:00 Diagnostic Test (Pha) (Accu-Chek) 1 ea 02 XX ; Start 07/02/16 at 02:00 Miscellaneous Information 1 ea NOTE XX ; Start 07/01/16 at 07:00 Glucose (Glutose) 15 gm Q15M PRN PO DECREASED GLUCOSE; Start 07/01/16 at 07:00 Glucose (Glutose) 22.5 gm Q15M PRN PO DECREASED GLUCOSE; Start 07/01/16 at 07: 00 Dextrose (D50w Syringe) 25 ml Q15M PRN IV DECREASED GLUCOSE; Start 07/01/16 at 07:00 Dextrose (D50w Syringe) 50 ml Q15M PRN IV DECREASED GLUCOSE; Start 07/01/16 at 07:00 Glucagon (Glucagen) 1 mg Q15M PRN IM DECREASED GLUCOSE; Start 07/01/16 at 07:00 Glucose (Glutose) 15 gm Q15M PRN BUCCAL DECREASED GLUCOSE; Start 07/01/16 at 07 :00 Atorvastatin Calcium (Lipitor) 40 mg HS PO Last administered on 07/05/16 20:48 ; Admin Dose 40 MG; Start 07/01/16 at 21:00 Baclofen (Lioresal) 10 mg TID PO Last administered on 07/05/16 20:48; Admin Dose 10 MG; Start 07/01/16 at 21:00 Clonazepam (Klonopin) 0.5 mg TID PO Last administered on 07/05/16 20:48; Admin Dose 0.5 MG; Start 07/01/16 at 19:00 Docusate Sodium (Colace) 250 mg DAILY PRN PO CONSTIPATION; Start 07/01/16 at 13 :30 Duloxetine HCl (Cymbalta) 60 mg DAILY PO Last administered on 07/04/16 09:17; Admin Dose 60 MG; Start 07/02/16 at 09:00 Hydromorphone HCl (Dilaudid) 2 mg TID PRN PO pain Last administered on 17:26; Admin Dose 2 MG; Start 07/01/16 at 13:30 Metoprolol Succinate (Toprol Xl) 100 mg DAILY PO Last administered on 09:18; Admin Dose 100 MG; Start 07/02/16 at 09:00 Quetiapine Fumarate (Seroquel) 400 mg QHS PO Last administered on 07/05/16 20: 48; Admin Dose 400 MG; Start 07/01/16 at 21:00 Pregabalin (Lyrica) 50 mg BID PO Last administered on 07/05/16 20:48; Admin Dose 50 MG; Start 07/01/16 at 21:00 Furosemide 20 mg 20 mg DAILY IV Last administered on 07/04/16 09:19; Admin Dose 20 MG; Start 07/03/16 at 09:00 Ceftriaxone Sodium (Rocephin) 50 ml @ 100 mls/hr Q24H IVPB Last administered on 07/05/16 22:37; Admin Dose 100 MLS/HR; Start 07/02/16 at 23:30 Hydromorphone HCl (Dilaudid) 0.5 mg Q6H PRN IV PAIN LEVEL 6-10; Start 07/05/16 at 09:00 Acetaminophen/ Hydrocodone Bitart ([place] (5/325)) 1 tab Q6H PRN PO PAIN LEVEL 6 -10; Start 07/05/16 at 09:00 Ondansetron HCl (Zofran Inj) 4 mg Q6H PRN IV NAUSEA AND/OR VOMITING; Start at 09:00 Famotidine 20 mg 20 mg Q12 IV Last administered on 07/05/16 20:48; Admin Dose 20 MG; Start 07/05/16 at 09:00 Potassium Chloride 20 meq/ Lactated Ringer's 1,010 ml @ 100 mls/hr Q10H6M IV Last administered on 07/06/16 01:44; Admin Dose 100 MLS/HR; Start 07/05/16 at 10:00 Cefazolin Sodium (Ancef 1 Gm/50 ml (Pmx)) 50 ml @ 100 mls/hr Q8H IVPB Last administered on 07/05/16 23:47; Admin Dose 100 MLS/HR; Start 07/05/16 at 16:00 ; Stop 07/06/16 at 08:29 Naloxone HCl (Narcan) 0.1 mg Q2M PRN IV FOR RESP RATE 8 OR LESS; Start at 14:30; Stop 07/06/16 at 14:29 Hydromorphone HCl (Dilaudid) 1 mg Q3H PRN IV BREAKTHROUGH PAIN Last administered on 07/05/16 23:53; Admin Dose 1 MG; Start 07/05/16 at 14:30; Stop 07/06/16 at 14:29 Hydromorphone HCl (Dilaudid) 0.2 mg Q3H PRN IV PAIN LEVEL 1-5; Start 07/05/16 at 14:30; Stop 07/06/16 at 14:29 Hydromorphone HCl (Dilaudid) 0.4 mg Q3H PRN IV PAIN LEVEL 6-10; Start 07/05/16 at 14:30; Stop 07/06/16 at 14:29 Diphenhydramine HCl (Benadryl) 25 mg Q6H PRN IV ITCHING; Start 07/05/16 at 14: 30; Stop 07/06/16 at 14:29 Ondansetron HCl (Zofran Inj) 4 mg Q6H PRN IV NAUSEA AND/OR VOMITING; Start at 14:30; Stop 07/06/16 at 14:29 CANDELARIO AVENDAÑO MD July 06, 2016 08:14
[2016-07-06] MEDS: CEFAZOLIN 1 GM/50 ML (PMX) 50 ML IVPB SCH (08:32)
[2016-07-06] MEDS: PREGABALIN 25 MG CAP PO SCH ×2 (08:33→21:43)
[2016-07-06] MEDS: clonAZEPAM 0.5 MG TAB PO SCH ×3 (08:33→21:44)
[2016-07-06] MEDS: FAMOTIDINE 20 MG INJ IV SCH ×2 (08:34→21:42)
[2016-07-06] MEDS: DULOXETINE 30 MG CAP DR PO SCH (08:34)
[2016-07-06] MEDS: METOPROLOL (XL) 100 MG TAB PO SCH (08:35)
[2016-07-06] MEDS: BACLOFEN 10 MG TAB PO SCH ×3 (08:35→21:43)
[2016-07-06] MEDS: FUROSEMIDE 20 MG INJ IV SCH (08:35)
[2016-07-06 08:38] VITALS: BP 134/84; RESP 20
[2016-07-06] MEDS: INSULIN ASPART [NOVOLOG] 3 ML PEN SC SCH ×4 (08:41→21:00)
[2016-07-06] MEDS: morphine 2 MG INJ IV PRN (11:21)
[2016-07-06] MEDS ORDERED: HYDROmorphONE 1 MG/ML SYG IV PRN ×2 (14:00→20:00)
--- NOTE | 2016-07-06 14:06 | PN ---
Date/Time of Note Date/Time of Note DATE: 07/06/16 TIME: 14:03 Assessment/Plan VTE Prophylaxis VTE Prophylaxis Intervention: ambulation Lines/Catheters IV C[facility]ter Type (from [facility] Peripheral IV Urinary Cath still in place: No Assessment/Plan Chief Complaint/Hosp Course 1. S/p complex pelvic cystic structure remobval. 2. The patient has hypernatremia. 3. The patient has renal insufficiency. 4. History of diabetes mellitus. 5. Dyslipidemia. 6. History of hypertension. 7. History of cholecystectomy. 9 copd 10 poss pneumonia/atelectasis Problems: Assessment/Plan 1. pain control increase dilaudid to 1 mg Subjective 24 Hr Interval Summary Constitutional: other (reqired pain management) Eyes: no complaints ENT: no complaints Respiratory: no complaints Cardiovascular: no complaints Gastrointestinal: pain Exam/Review of Systems Vital Signs Vitals Vital Signs Date Time Temp Pulse Resp B/P Pulse Ox O2 Delivery O2 Flow Rate FiO2 07/06/16 08:38 97.9 93 20 134/84 93 07/06/16 08:00 Nasal Cannula 4.0 07/04/16 19:49 21 Intake and Output 07/05/16 07/05/16 07/06/16 15:00 23:00 07:00 Intake Total 1200 ml 1260 ml 1610 ml Output Total 160 ml 250 ml 1100 ml Balance 1040 ml 1010 ml 510 ml Exam Constitutional: alert, oriented Head: normocephalic ENMT: nl external ears & nose Neck: supple Respiratory: clear to auscultation Cardiovascular: regular rate and rhythm Gastrointestinal: distended, soft, surgical scars Results Result Diagram: 07/06/16 0458 07/06/16 0451 Results 24 hrs Laboratory Tests Test 07/05/16 17:13 07/05/16 20:30 07/06/16 04:51 07/06/16 04:58 Bedside Glucose 193 178 Prothrombin Time 14.3 H Prothrombin Time Ratio 1.1 INR International Normalized Ratio 1.11 Sodium Level 141 Potassium Level 3.7 Chloride Level 105 Carbon Dioxide Level 28 Anion Gap 12 Blood Urea Nitrogen 13 Creatinine 0.97 Glucose Level 172 Calcium Level 8.4 White Blood Count 11.7 H Red Blood Count 4.49 Hemoglobin 13.4 Hematocrit 41.5 Mean Corpuscular Volume 92.4 Mean Corpuscular Hemoglobin 29.8 Mean Corpuscular Hemoglobin Concent 32.3 Red Cell Distribution Width 14.6 H Platelet Count 202 Mean Platelet Volume 9.3 Neutrophils % 83.9 H Lymphocytes % 10.4 L Monocytes % 5.2 Eosinophils % 0.0 Basophils % 0.1 Nucleated Red Blood Cells % 0.0 Neutrophils # 9.8 H Lymphocytes # 1.2 Monocytes # 0.6 Eosinophils # 0.0 Basophils # 0.0 Nucleated Red Blood Cells # 0.0 Test 07/06/16 08:33 07/06/16 12:09 Bedside Glucose 160 163 Medications Medications Current Medications Acetaminophen (Tylenol Tab) 650 mg Q6H PRN PO PAIN LEVEL 1-3 OR FEVER; Start at 06:30 Morphine Sulfate (morphine) 2 mg Q4H PRN IV SEVERE PAIN LEVEL 7-10 Last administered on 07/06/16t 11:21; Admin Dose 2 MG; Start 07/01/16 at 06:30 Docusate Sodium (Colace) 100 mg Q12H PRN PO CONSTIPATION; Start 07/01/16 at 06: 30 Magnesium Hydroxide (Milk Of Mag) 30 ml DAILY PRN PO CONSTIPATION; Start at 06:30 Bisacodyl (Dulcolax) 5 mg DAILY PRN PO CONSTIPATION; Start 07/01/16 at 06:30 Pantoprazole (Protonix Iv) 40 mg DAILY@06 IV Last administered on 07/06/16 06: 12; Admin Dose 40 MG; Start 07/02/16 at 06:00 Diagnostic Test (Pha) (Accu-Chek) 1 ea 02 XX ; Start 07/02/16 at 02:00 Miscellaneous Information 1 ea NOTE XX ; Start 07/01/16 at 07:00 Glucose (Glutose) 15 gm Q15M PRN PO DECREASED GLUCOSE; Start 07/01/16 at 07:00 Glucose (Glutose) 22.5 gm Q15M PRN PO DECREASED GLUCOSE; Start 07/01/16 at 07: 00 Dextrose (D50w Syringe) 25 ml Q15M PRN IV DECREASED GLUCOSE; Start 07/01/16 at 07:00 Dextrose (D50w Syringe) 50 ml Q15M PRN IV DECREASED GLUCOSE; Start 07/01/16 at 07:00 Glucagon (Glucagen) 1 mg Q15M PRN IM DECREASED GLUCOSE; Start 07/01/16 at 07:00 Glucose (Glutose) 15 gm Q15M PRN BUCCAL DECREASED GLUCOSE; Start 07/01/16 at 07 :00 Atorvastatin Calcium (Lipitor) 40 mg HS PO Last administered on 07/05/16 20:48 ; Admin Dose 40 MG; Start 07/01/16 at 21:00 Baclofen (Lioresal) 10 mg TID PO Last administered on 07/06/16 12:37; Admin Dose 10 MG; Start 07/01/16 at 21:00 Clonazepam (Klonopin) 0.5 mg TID PO Last administered on 07/06/16 12:37; Admin Dose 0.5 MG; Start 07/01/16 at 19:00 Docusate Sodium (Colace) 250 mg DAILY PRN PO CONSTIPATION; Start 07/01/16 at 13 :30 Duloxetine HCl (Cymbalta) 60 mg DAILY PO Last administered on 07/06/16 08:34; Admin Dose 60 MG; Start 07/02/16 at 09:00 Hydromorphone HCl (Dilaudid) 2 mg TID PRN PO pain Last administered on 17:26; Admin Dose 2 MG; Start 07/01/16 at 13:30 Metoprolol Succinate (Toprol Xl) 100 mg DAILY PO Last administered on 08:35; Admin Dose 100 MG; Start 07/02/16 at 09:00 Quetiapine Fumarate (Seroquel) 400 mg QHS PO Last administered on 07/05/16 20: 48; Admin Dose 400 MG; Start 07/01/16 at 21:00 Pregabalin (Lyrica) 50 mg BID PO Last administered on 07/06/16 08:33; Admin Dose 50 MG; Start 07/01/16 at 21:00 Furosemide 20 mg 20 mg DAILY IV Last administered on 07/06/16 08:35; Admin Dose 20 MG; Start 07/03/16 at 09:00 Ceftriaxone Sodium (Rocephin) 50 ml @ 100 mls/hr Q24H IVPB Last administered on 07/05/16 22:37; Admin Dose 100 MLS/HR; Start 07/02/16 at 23:30 Hydromorphone HCl (Dilaudid) 0.5 mg Q6H PRN IV PAIN LEVEL 6-10 Last administered on 07/06/16 12:38; Admin Dose 0.5 MG; Start 07/05/16 at 09:00 Acetaminophen/ Hydrocodone Bitart ([place] (5/325)) 1 tab Q6H PRN PO PAIN LEVEL 6 -10; Start 07/05/16 at 09:00 Ondansetron HCl (Zofran Inj) 4 mg Q6H PRN IV NAUSEA AND/OR VOMITING; Start at 09:00 Famotidine 20 mg 20 mg Q12 IV Last administered on 07/06/16 08:34; Admin Dose 20 MG; Start 07/05/16 at 09:00 Potassium Chloride/Lactated Ringer's (KCl/Lr) 1,010 ml @ 100 mls/hr Q10H6M IV Last administered on 07/06/16 12:37; Admin Dose 100 MLS/HR; Start 07/05/16 at 10:00 Naloxone HCl (Narcan) 0.1 mg Q2M PRN IV FOR RESP RATE 8 OR LESS; Start at 14:30; Stop 07/06/16 at 14:29 Hydromorphone HCl (Dilaudid) 1 mg Q3H PRN IV BREAKTHROUGH PAIN Last administered on 07/05/16 23:53; Admin Dose 1 MG; Start 07/05/16 at 14:30; Stop 07/06/16 at 14:29 Hydromorphone HCl (Dilaudid) 0.2 mg Q3H PRN IV PAIN LEVEL 1-5; Start 07/05/16 at 14:30; Stop 07/06/16 at 14:29 Hydromorphone HCl (Dilaudid) 0.4 mg Q3H PRN IV PAIN LEVEL 6-10; Start 07/05/16 at 14:30; Stop 07/06/16 at 14:29 Diphenhydramine HCl (Benadryl) 25 mg Q6H PRN IV ITCHING; Start 07/05/16 at 14: 30; Stop 07/06/16 at 14:29 Ondansetron HCl (Zofran Inj) 4 mg Q6H PRN IV NAUSEA AND/OR VOMITING; Start at 14:30; Stop 07/06/16 at 14:29 YAZ HOLMAN July 06, 2016 14:05
--- NOTE | 2016-07-06 15:29 | CONS ---
Date/Time of Note Date/Time of Note DATE: 07/06/16 TIME: 15:26 Assessment/Plan Assessment/Plan Additional Assessment/Plan S/P Pelvic Mass resection Hypertension. Dyslipidemia. Abnormal electrocardiogram with nonspecific ST and T-wave abnormalities. Diabetes mellitus. Hemodynamically stable Continue Lasix as scheduled Continue Metoprolol Continue Insulin Continue Lipitor Continue GI and DVT Prophylaxis Continue antibiotics as recommended Pain Control as scheduled Consultation Date/Type/Reason Admit Date/Time July 01, 2016 at 04:43 Constitutional: other (reqired pain management) Eyes: no complaints ENT: no complaints Respiratory: no complaints Cardiovascular: no complaints Gastrointestinal: pain Genitourinary: no complaints Psychological: no complaints Social History Smoking Status: Current every day smoker Exam/Review of Systems Vital Signs Vitals Vital Signs Date Time Temp Pulse Resp B/P Pulse Ox O2 Delivery O2 Flow Rate FiO2 07/06/16 14:17 68 18 98 21 07/06/16 08:38 97.9 134/84 07/06/16 08:00 Nasal Cannula 4.0 Intake and Output 07/05/16 07/05/16 07/06/16 15:00 23:00 07:00 Intake Total 1200 ml 1260 ml 1610 ml Output Total 160 ml 250 ml 1100 ml Balance 1040 ml 1010 ml 510 ml Exam Head: atraumatic, normocephalic Neck: non-tender, supple Respiratory: clear to auscultation Cardiovascular: regular rate and rhythm Extremities: normal pulses Results Result Diagram: 07/06/16 0458 07/06/16 0451 Results 24 hrs Laboratory Tests Test 07/05/16 17:13 07/05/16 20:30 07/06/16 04:51 07/06/16 04:58 Bedside Glucose 193 178 Prothrombin Time 14.3 H Prothrombin Time Ratio 1.1 INR International Normalized Ratio 1.11 Sodium Level 141 Potassium Level 3.7 Chloride Level 105 Carbon Dioxide Level 28 Anion Gap 12 Blood Urea Nitrogen 13 Creatinine 0.97 Glucose Level 172 Calcium Level 8.4 White Blood Count 11.7 H Red Blood Count 4.49 Hemoglobin 13.4 Hematocrit 41.5 Mean Corpuscular Volume 92.4 Mean Corpuscular Hemoglobin 29.8 Mean Corpuscular Hemoglobin Concent 32.3 Red Cell Distribution Width 14.6 H Platelet Count 202 Mean Platelet Volume 9.3 Neutrophils % 83.9 H Lymphocytes % 10.4 L Monocytes % 5.2 Eosinophils % 0.0 Basophils % 0.1 Nucleated Red Blood Cells % 0.0 Neutrophils # 9.8 H Lymphocytes # 1.2 Monocytes # 0.6 Eosinophils # 0.0 Basophils # 0.0 Nucleated Red Blood Cells # 0.0 Test 07/06/16 08:33 07/06/16 12:09 Bedside Glucose 160 163 Medications Medications Current Medications Acetaminophen (Tylenol Tab) 650 mg Q6H PRN PO PAIN LEVEL 1-3 OR FEVER; Start at 06:30 Morphine Sulfate (morphine) 2 mg Q4H PRN IV SEVERE PAIN LEVEL 7-10 Last administered on 07/06/16 11:21; Admin Dose 2 MG; Start 07/01/16 at 06:30 Docusate Sodium (Colace) 100 mg Q12H PRN PO CONSTIPATION; Start 07/01/16 at 06: 30 Magnesium Hydroxide (Milk Of Mag) 30 ml DAILY PRN PO CONSTIPATION; Start at 06:30 Bisacodyl (Dulcolax) 5 mg DAILY PRN PO CONSTIPATION; Start 07/01/16 at 06:30 Pantoprazole (Protonix Iv) 40 mg DAILY@06 IV Last administered on 07/06/16 06: 12; Admin Dose 40 MG; Start 07/02/16 at 06:00 Diagnostic Test (Pha) (Accu-Chek) 1 ea 02 XX ; Start 07/02/16 at 02:00 Miscellaneous Information 1 ea NOTE XX ; Start 07/01/16 at 07:00 Glucose (Glutose) 15 gm Q15M PRN PO DECREASED GLUCOSE; Start 07/01/16 at 07:00 Glucose (Glutose) 22.5 gm Q15M PRN PO DECREASED GLUCOSE; Start 07/01/16 at 07: 00 Dextrose (D50w Syringe) 25 ml Q15M PRN IV DECREASED GLUCOSE; Start 07/01/16 at 07:00 Dextrose (D50w Syringe) 50 ml Q15M PRN IV DECREASED GLUCOSE; Start 07/01/16 at 07:00 Glucagon (Glucagen) 1 mg Q15M PRN IM DECREASED GLUCOSE; Start 07/01/16 at 07:00 Glucose (Glutose) 15 gm Q15M PRN BUCCAL DECREASED GLUCOSE; Start 07/01/16 at 07 :00 Atorvastatin Calcium (Lipitor) 40 mg HS PO Last administered on 07/05/16 20:48 ; Admin Dose 40 MG; Start 07/01/16 at 21:00 Baclofen (Lioresal) 10 mg TID PO Last administered on 07/06/16 12:37; Admin Dose 10 MG; Start 07/01/16 at 21:00 Clonazepam (Klonopin) 0.5 mg TID PO Last administered on 07/06/16 12:37; Admin Dose 0.5 MG; Start 07/01/16 at 19:00 Docusate Sodium (Colace) 250 mg DAILY PRN PO CONSTIPATION; Start 07/01/16 at 13 :30 Duloxetine HCl (Cymbalta) 60 mg DAILY PO Last administered on 07/06/16 08:34; Admin Dose 60 MG; Start 07/02/16 at 09:00 Hydromorphone HCl (Dilaudid) 2 mg TID PRN PO pain Last administered on 17:26; Admin Dose 2 MG; Start 07/01/16 at 13:30 Metoprolol Succinate (Toprol Xl) 100 mg DAILY PO Last administered on 08:35; Admin Dose 100 MG; Start 07/02/16 at 09:00 Quetiapine Fumarate (Seroquel) 400 mg QHS PO Last administered on 07/05/16 20: 48; Admin Dose 400 MG; Start 07/01/16 at 21:00 Pregabalin (Lyrica) 50 mg BID PO Last administered on 07/06/16 08:33; Admin Dose 50 MG; Start 07/01/16 at 21:00 Furosemide 20 mg 20 mg DAILY IV Last administered on 07/06/16 08:35; Admin Dose 20 MG; Start 07/03/16 at 09:00 Ceftriaxone Sodium (Rocephin) 50 ml @ 100 mls/hr Q24H IVPB Last administered on 07/05/16 22:37; Admin Dose 100 MLS/HR; Start 07/02/16 at 23:30 Acetaminophen/ Hydrocodone Bitart ([place] (5/325)) 1 tab Q6H PRN PO PAIN LEVEL 6 -10; Start 07/05/16 at 09:00 Ondansetron HCl (Zofran Inj) 4 mg Q6H PRN IV NAUSEA AND/OR VOMITING; Start at 09:00 Famotidine 20 mg 20 mg Q12 IV Last administered on 07/06/16 08:34; Admin Dose 20 MG; Start 07/05/16 at 09:00 Potassium Chloride/Lactated Ringer's (KCl/Lr) 1,010 ml @ 100 mls/hr Q10H6M IV Last administered on 07/06/16 12:37; Admin Dose 100 MLS/HR; Start 07/05/16 at 10:00 Hydromorphone HCl (Dilaudid) 1 mg Q6H PRN IV PAIN LEVEL 6-10; Start 07/06/16 at 14:00 TIFFANY NICHOLSON M.D. July 06, 2016 15:29
--- NOTE | 2016-07-06 17:51 | OPR ---
Date/Time of Note Date/Time of Note DATE: 07/06/16 TIME: 17:50 Operative Report Free Text/Dictation OPERATIVE REPORT [facility] Name: Ninfa [facility]rope[facility] Date: 07/05/16 Preoperative Diagnosis: 1- Large right adnexal mass 2- Pelvic pain Postoperative Diagnosis: 1- Benign right adnexal mass; pathology pending 2- Ureteral stricture 3- Right ovarian vein dilatation Procedures: 1- Laparoscopy 2- Lysis of adhesions 3- Unilateral ureteral dissection with repositioning 4- Bilateral salpingoophorectomy Surgeon: Dr. Rodriguez Band Lining Bander: Dr. Yepez Anesthesia: General Indications for Procedure: The patient is a 61 year old female with a 10-12 cm multi-cystic right adnexal mass and pain with normal markers as appropriate for the patients age with all risks considered after thorough clearance. After all options were presented with risks and benefits she agreed to a laparoscopy with a bilateral salpingoophorectomy and possible hysterectomy with staging if needed. Findings and Summary After exploration we observed considerable obesity and a 10-12 cm adnexal Name: Ninfa Orope[facility] mass densely adherent to the sidewall. Because the adnexia was adherent to the sidewall with ovarian vein dilatation noted it was necessary to dissect and reposition the right ureter. The right adnexia was then removed without incident and noted to be benign on frozen section, after which the contralateral adnexia was removed without incident. Procedure: After being prepped and draped in the usual manner an EEA sizer and pneumo- occluder was inserted vaginally. A 5 millimeter trocar was then inserted cephlad to the umbilicus without incident and the abdomen was insufflated to 15 mm Hg. Subsequently, we then placed two 5-millimeter trocars laterally under direct visualization and considerable omental adhesions lysed with the Omni and Thunderbeat, after which the 12 millimeter trocar was placed suprapubically. At this time any additional pelvic adhesions were lysed with sharp dissection and a Omni or Gyrus bipolar cutting forceps in the event that no bowel were adjacent. Subsequently we explored and noted obesity and a 10-12 complex cystic right adnexal mass densely adherent to the sidewall with ovarian vein dilatation and a small normal contralateral adnexia with small uterus and small fibroids. Hence, the round ligament was transected with a Gyrus bipolar cutting forceps and the retroperitoneum opened parallel to the infundibulo-pelvic (IP) ligament with the Gyrus bipolar cutting forceps and Omni and the opening extended to define anatomy. The ureter was identified, and noted to be densely adherent to the pathology and somewhat distorted, hence requiring a ureteral dissection/repositioning as a separate procedure. The ureter was dissected away and repositioned with great care using the endo-dissector as well as the Omni bluntly with the Omni also used for retroperitoneal hemostasis as needed with the ureter visualized and mobilized as appropriate. This process was carried out throughout the ureteral length in the pelvis and it peristalsed normally once repositioned. Subsequently, the IP ligament was desiccated and Name: [facility] transected with a Thunderbeat. The adnexia with adherent peritoneum was mobilized with an Omni while visualizing the ureter with the Omni used for localized hemostasis as needed with the ureter visualized and then further mobilized. Hence the ovary and tube were fully by desiccated and transaction of the right triple pedicle with Thunderbeat and Omni. The adnexia was placed in a 15-millimeter sac and had the liquid contents removed and the mass was then removed and was sent to pathology and confirmed to be benign on frozen section. Subsequently the 12-millimeter trocar was reinserted. Hence, the left round ligament was transected with a Gyrus bipolar cutting forceps and the retroperitoneum opened parallel to the infundibulo-pelvic (IP) ligament with the Gyrus bipolar cutting forceps and Omni and the opening extended to define anatomy. The ureter was identified, and was minimally mobilized away and repositioned with care using the endo-dissector as well as the Omni bluntly with the Omni also used for retroperitoneal hemostasis as needed with the ureter visualized and mobilized as appropriate. Subsequently, the IP ligament was desiccated and transected with a Thunderbeat. Hence the ovary and tube were fully by desiccated and transaction of the left triple pedicle with Thunderbeat and Omni. The left adnexia was placed in a sac and removed. After irrigating and assuring hemostasis the 12 millimeter trocar was removed and the fascia was closed with 0-vicryl using an endo-close devise with multiple sutures. The gas was removed and the skin of all sites then closed with 4-0 Plain Gut. The EBL was 100 ml and the patient tolerated the procedure well and left the OR in good condition. Ceasar Rodriguez M.D. CEASAR RODRIGUEZ MD July 06, 2016 17:51
--- NOTE | 2016-07-06 17:55 | PN ---
Date/Time of Note Date/Time of Note DATE: 07/06/16 TIME: 17:53 Assessment/Plan VTE Prophylaxis VTE Prophylaxis Intervention: LMWH, SCD's Lines/Catheters IV Catheter Type (from Nrsg): Peripheral IV Urinary Cath still in place: No Assessment/Plan Chief Complaint/Hosp Course Pelvic mass, possible pneumonia Problems: Assessment/Plan A- clinically improved P- adv diet and if no problems possibly d/c Friday Subjective 24 Hr Interval Summary Free Text/Dictation + flatus and OOB, less pain and tolerating clear liq. Exam/Review of Systems Vital Signs Vitals Vital Signs Date Time Temp Pulse Resp B/P Pulse Ox O2 Delivery O2 Flow Rate FiO2 07/06/16 14:17 68 18 98 21 07/06/16 08:38 97.9 134/84 07/06/16 08:00 Nasal Cannula 4.0 Intake and Output 07/05/16 07/05/16 07/06/16 14:59 22:59 06:59 Intake Total 1200 ml 1210 ml 1660 ml Output Total 160 ml 250 ml 1100 ml Balance 1040 ml 960 ml 560 ml Exam Resp- clear CVS- NSR Abd- soft NT Ext- NT no edema Results Result Diagram: 07/06/16 0458 07/06/16 0451 Results 24 hrs Laboratory Tests Test 07/05/16 20:30 07/06/16 04:51 07/06/16 04:58 07/06/16 08:33 Bedside Glucose 178 160 Prothrombin Time 14.3 H Prothrombin Time Ratio 1.1 INR International Normalized Ratio 1.11 Sodium Level 141 Potassium Level 3.7 Chloride Level 105 Carbon Dioxide Level 28 Anion Gap 12 Blood Urea Nitrogen 13 Creatinine 0.97 Glucose Level 172 Calcium Level 8.4 White Blood Count 11.7 H Red Blood Count 4.49 Hemoglobin 13.4 Hematocrit 41.5 Mean Corpuscular Volume 92.4 Mean Corpuscular Hemoglobin 29.8 Mean Corpuscular Hemoglobin Concent 32.3 Red Cell Distribution Width 14.6 H Platelet Count 202 Mean Platelet Volume 9.3 Neutrophils % 83.9 H Lymphocytes % 10.4 L Monocytes % 5.2 Eosinophils % 0.0 Basophils % 0.1 Nucleated Red Blood Cells % 0.0 Neutrophils # 9.8 H Lymphocytes # 1.2 Monocytes # 0.6 Eosinophils # 0.0 Basophils # 0.0 Nucleated Red Blood Cells # 0.0 Test 07/06/16 12:09 07/06/16 17:19 Bedside Glucose 163 131 Medications Medications Current Medications Acetaminophen (Tylenol Tab) 650 mg Q6H PRN PO PAIN LEVEL 1-3 OR FEVER; Start at 06:30 Morphine Sulfate (morphine) 2 mg Q4H PRN IV SEVERE PAIN LEVEL 7-10 Last administered on 07/06/16 11:21; Admin Dose 2 MG; Start 07/01/16 at 06:30 Docusate Sodium (Colace) 100 mg Q12H PRN PO CONSTIPATION; Start 07/01/16 at 06: 30 Magnesium Hydroxide (Milk Of Mag) 30 ml DAILY PRN PO CONSTIPATION; Start at 06:30 Bisacodyl (Dulcolax) 5 mg DAILY PRN PO CONSTIPATION; Start 07/01/16 at 06:30 Pantoprazole (Protonix Iv) 40 mg DAILY@06 IV Last administered on 07/06/16 06: 12; Admin Dose 40 MG; Start 07/02/16 at 06:00 Diagnostic Test (Pha) (Accu-Chek) 1 ea 02 XX ; Start 07/02/16 at 02:00 Miscellaneous Information 1 ea NOTE XX ; Start 07/01/16 at 07:00 Glucose (Glutose) 15 gm Q15M PRN PO DECREASED GLUCOSE; Start 07/01/16 at 07:00 Glucose (Glutose) 22.5 gm Q15M PRN PO DECREASED GLUCOSE; Start 07/01/16 at 07: 00 Dextrose (D50w Syringe) 25 ml Q15M PRN IV DECREASED GLUCOSE; Start 07/01/16 at 07:00 Dextrose (D50w Syringe) 50 ml Q15M PRN IV DECREASED GLUCOSE; Start 07/01/16 at 07:00 Glucagon (Glucagen) 1 mg Q15M PRN IM DECREASED GLUCOSE; Start 07/01/16 at 07:00 Glucose (Glutose) 15 gm Q15M PRN BUCCAL DECREASED GLUCOSE; Start 07/01/16 at 07 :00 Atorvastatin Calcium (Lipitor) 40 mg HS PO Last administered on 07/05/16 20:48 ; Admin Dose 40 MG; Start 07/01/16 at 21:00 Baclofen (Lioresal) 10 mg TID PO Last administered on 07/06/16 12:37; Admin Dose 10 MG; Start 07/01/16 at 21:00 Clonazepam (Klonopin) 0.5 mg TID PO Last administered on 07/06/16 12:37; Admin Dose 0.5 MG; Start 07/01/16 at 19:00 Docusate Sodium (Colace) 250 mg DAILY PRN PO CONSTIPATION; Start 07/01/16 at 13 :30 Duloxetine HCl (Cymbalta) 60 mg DAILY PO Last administered on 07/06/16 08:34; Admin Dose 60 MG; Start 07/02/16 at 09:00 Hydromorphone HCl (Dilaudid) 2 mg TID PRN PO pain Last administered on 17:26; Admin Dose 2 MG; Start 07/01/16 at 13:30 Metoprolol Succinate (Toprol Xl) 100 mg DAILY PO Last administered on 08:35; Admin Dose 100 MG; Start 07/02/16 at 09:00 Quetiapine Fumarate (Seroquel) 400 mg QHS PO Last administered on 07/05/16 20: 48; Admin Dose 400 MG; Start 07/01/16 at 21:00 Pregabalin (Lyrica) 50 mg BID PO Last administered on 07/06/16 08:33; Admin Dose 50 MG; Start 07/01/16 at 21:00 Furosemide 20 mg 20 mg DAILY IV Last administered on 07/06/16 08:35; Admin Dose 20 MG; Start 07/03/16 at 09:00 Ceftriaxone Sodium (Rocephin) 50 ml @ 100 mls/hr Q24H IVPB Last administered on 07/05/16 22:37; Admin Dose 100 MLS/HR; Start 07/02/16 at 23:30 Acetaminophen/ Hydrocodone Bitart ([place] (5/325)) 1 tab Q6H PRN PO PAIN LEVEL 6 -10; Start 07/05/16 at 09:00 Ondansetron HCl (Zofran Inj) 4 mg Q6H PRN IV NAUSEA AND/OR VOMITING; Start at 09:00 Famotidine 20 mg 20 mg Q12 IV Last administered on 07/06/16 08:34; Admin Dose 20 MG; Start 07/05/16 at 09:00 Potassium Chloride/Lactated Ringer's (KCl/Lr) 1,010 ml @ 100 mls/hr Q10H6M IV Last administered on 07/06/16 12:37; Admin Dose 100 MLS/HR; Start 07/05/16 at 10:00 Hydromorphone HCl (Dilaudid) 1 mg Q6H PRN IV PAIN LEVEL 6-10; Start 07/06/16 at 14:00 SEBASTIAN RONDON MD July 06, 2016 17:55
[2016-07-06] MEDS ORDERED: traMADol 50 MG TAB PO PRN (18:30)
[2016-07-06 19:25] VITALS: BP 148/71; RESP 20
[2016-07-06] MEDS: ATORVASTATIN 40 MG TAB PO SCH (21:43)
[2016-07-06] MEDS: QUETIAPINE 100 MG TAB PO SCH (21:43)
[2016-07-06] MEDS: CEFTRIAXONE 1 GM/50 ML (PMX) 50 ML IVPB SCH (23:40)
[2016-07-07 00:02] VITALS: BP 132/65; PULSE 70; RESP 18
[2016-07-07] MEDS: ACCU-CHEK XX SCH (02:00)
[2016-07-07] MEDS: ALBUTEROL/IPRATROPIUM (NEB) 3 ML AMP HHN SCH ×4 (02:28→19:19)
[2016-07-07 05:39] LABS: ADD SCAN DIFF NO
[2016-07-07 05:44] LABS: BASOPHILS % 0.2 % (0.0-2.0); EOSINOPHILS # 0.2 10^3/ul (0.0-0.5); EOSINOPHILS % 2.6 % (0.0-7.0); HEMATOCRIT 40.4 % (37.0-47.0); LYMPHOCYTES # 2.1 10^3/ul (0.8-2.9); LYMPHOCYTES % 24.1 % (15.0-51.0); MEAN CORPUSCULAR HEMOGLOBIN 30.3 pg (29.0-33.0); MEAN CORPUSCULAR HGB CONC 32.2 g/dl (32.0-37.0); MEAN CORPUSCULAR VOLUME 94.2 fl (82.0-101.0); MEAN PLATELET VOLUME 9.6 fl (7.4-10.4); MONOCYTE # 0.6 10^3/ul (0.3-0.9); MONOCYTES % 6.7 % (0.0-11.0); NEUTROPHIL # 5.8 10^3/ul (1.6-7.5); NEUTROPHILS % 65.9 % (39.0-77.0); PLATELET COUNT 208 10^3/UL (140-415); RED BLOOD COUNT 4.29 10^6/ul (4.20-5.40); RED CELL DISTRIBUTION WIDTH 14.6 % (11.5-14.5); WHITE BLOOD COUNT 8.8 10^3/ul (4.8-10.8)
[2016-07-07] MEDS: PANTOPRAZOLE 40 MG INJ IV SCH (05:46)
[2016-07-07 06:01] LABS: CALCIUM 8.2 mg/dl (8.4-10.2); CREATININE 0.92 mg/dl (0.44-1.00); POTASSIUM 3.5 mmol/L (3.5-5.1)
[2016-07-07 07:00] VITALS: BP 147/84; RESP 20
[2016-07-07] MEDS: INSULIN ASPART [NOVOLOG] 3 ML PEN SC SCH ×4 (07:50→20:17)
[2016-07-07] MEDS: DULOXETINE 30 MG CAP DR PO SCH (08:31)
[2016-07-07] MEDS: FUROSEMIDE 20 MG INJ IV SCH (08:31)
[2016-07-07] MEDS: FAMOTIDINE 20 MG INJ IV SCH (08:31)
[2016-07-07] MEDS: PREGABALIN 25 MG CAP PO SCH ×2 (08:32→20:12)
[2016-07-07] MEDS: BACLOFEN 10 MG TAB PO SCH ×3 (08:32→20:12)
[2016-07-07] MEDS: clonAZEPAM 0.5 MG TAB PO SCH ×3 (08:32→20:12)
[2016-07-07] MEDS: METOPROLOL (XL) 100 MG TAB PO SCH (08:33)
--- NOTE | 2016-07-07 11:21 | CONS ---
Date/Time of Note Date/Time of Note DATE: 07/07/16 TIME: 11:20 Assessment/Plan Assessment/Plan Additional Assessment/Plan S/P Pelvic Mass resection Hypertension. Dyslipidemia. Abnormal electrocardiogram with nonspecific ST and T-wave abnormalities. Diabetes mellitus. Hemodynamically stable Continue Lasix as scheduled Continue Metoprolol Continue Insulin Continue Lipitor Continue GI and DVT Prophylaxis Continue antibiotics as recommended Pain Control as scheduled Consultation Date/Type/Reason Admit Date/Time July 01, 2016 at 04:43 Initial Consult Date 07/03/16 Type of Consultation: Cardiology Referring Provider: LATRICIA WORLEY MD Exam/Review of Systems Vital Signs Vitals Vital Signs Date Time Temp Pulse Resp B/P Pulse Ox O2 Delivery O2 Flow Rate FiO2 07/07/16 08:45 67 14 99 Nasal Cannula 2.0 07/07/16 07:00 98.6 147/84 07/07/16 02:28 21 Intake and Output 07/06/16 07/06/16 07/07/16 15:00 23:00 07:00 Intake Total 800 ml 1970 ml 1000 ml Output Total 2400 ml 1500 ml Balance 800 ml -430 ml -500 ml Exam Head: atraumatic, normocephalic Neck: non-tender, supple Respiratory: clear to auscultation Cardiovascular: regular rate and rhythm Extremities: normal pulses Results Result Diagram: 07/07/16 0508 07/07/16 0500 Results 24 hrs Laboratory Tests Test 07/06/16 12:09 07/06/16 17:19 07/06/16 21:48 07/07/16 05:00 Bedside Glucose 163 131 122 Sodium Level 142 Potassium Level 3.5 Chloride Level 106 Carbon Dioxide Level 30 Anion Gap 10 Blood Urea Nitrogen 14 Creatinine 0.92 Glucose Level 114 # Calcium Level 8.2 L Test 07/07/16 05:08 07/07/16 08:28 White Blood Count 8.8 # Red Blood Count 4.29 Hemoglobin 13.0 Hematocrit 40.4 Mean Corpuscular Volume 94.2 Mean Corpuscular Hemoglobin 30.3 Mean Corpuscular Hemoglobin Concent 32.2 Red Cell Distribution Width 14.6 H Platelet Count 208 Mean Platelet Volume 9.6 Neutrophils % 65.9 Lymphocytes % 24.1 Monocytes % 6.7 Eosinophils % 2.6 Basophils % 0.2 Nucleated Red Blood Cells % 0.0 Neutrophils # 5.8 Lymphocytes # 2.1 Monocytes # 0.6 Eosinophils # 0.2 Basophils # 0.0 Nucleated Red Blood Cells # 0.0 Bedside Glucose 106 Medications Medications Current Medications Acetaminophen (Tylenol Tab) 650 mg Q6H PRN PO PAIN LEVEL 1-3 OR FEVER; Start at 06:30 Morphine Sulfate (morphine) 2 mg Q4H PRN IV SEVERE PAIN LEVEL 7-10 Last administered on 07/06/16 11:21; Admin Dose 2 MG; Start 07/01/16 at 06:30 Docusate Sodium (Colace) 100 mg Q12H PRN PO CONSTIPATION; Start 07/01/16 at 06: 30 Magnesium Hydroxide (Milk Of Mag) 30 ml DAILY PRN PO CONSTIPATION; Start at 06:30 Pantoprazole (Protonix Iv) 40 mg DAILY@06 IV Last administered on 07/07/16 05: 46; Admin Dose 40 MG; Start 07/02/16 at 06:00 Diagnostic Test (Pha) (Accu-Chek) 1 ea 02 XX ; Start 07/02/16 at 02:00 Miscellaneous Information 1 ea NOTE XX ; Start 07/01/16 at 07:00 Glucose (Glutose) 15 gm Q15M PRN PO DECREASED GLUCOSE; Start 07/01/16 at 07:00 Glucose (Glutose) 22.5 gm Q15M PRN PO DECREASED GLUCOSE; Start 07/01/16 at 07: 00 Dextrose (D50w Syringe) 25 ml Q15M PRN IV DECREASED GLUCOSE; Start 07/01/16 at 07:00 Dextrose (D50w Syringe) 50 ml Q15M PRN IV DECREASED GLUCOSE; Start 07/01/16 at 07:00 Glucagon (Glucagen) 1 mg Q15M PRN IM DECREASED GLUCOSE; Start 07/01/16 at 07:00 Glucose (Glutose) 15 gm Q15M PRN BUCCAL DECREASED GLUCOSE; Start 07/01/16 at 07 :00 Atorvastatin Calcium (Lipitor) 40 mg HS PO Last administered on 07/06/16 21:43 ; Admin Dose 40 MG; Start 07/01/16 at 21:00 Baclofen (Lioresal) 10 mg TID PO Last administered on 07/07/16 08:32; Admin Dose 10 MG; Start 07/01/16 at 21:00 Clonazepam (Klonopin) 0.5 mg TID PO Last administered on 07/07/16 08:32; Admin Dose 0.5 MG; Start 07/01/16 at 19:00 Duloxetine HCl (Cymbalta) 60 mg DAILY PO Last administered on 07/07/16 08:31; Admin Dose 60 MG; Start 07/02/16 at 09:00 Hydromorphone HCl (Dilaudid) 2 mg TID PRN PO pain Last administered on 17:26; Admin Dose 2 MG; Start 07/01/16 at 13:30 Metoprolol Succinate (Toprol Xl) 100 mg DAILY PO Last administered on 08:33; Admin Dose 100 MG; Start 07/02/16 at 09:00 Quetiapine Fumarate (Seroquel) 400 mg QHS PO Last administered on 07/06/16 21: 43; Admin Dose 400 MG; Start 07/01/16 at 21:00 Pregabalin (Lyrica) 50 mg BID PO Last administered on 07/07/16 08:32; Admin Dose 50 MG; Start 07/01/16 at 21:00 Furosemide 20 mg 20 mg DAILY IV Last administered on 07/07/16 08:31; Admin Dose 20 MG; Start 07/03/16 at 09:00 Ceftriaxone Sodium (Rocephin) 50 ml @ 100 mls/hr Q24H IVPB Last administered on 07/06/16 23:40; Admin Dose 100 MLS/HR; Start 07/02/16 at 23:30 Acetaminophen/ Hydrocodone Bitart ([place] (5/325)) 1 tab Q6H PRN PO PAIN LEVEL 6 -10; Start 07/05/16 at 09:00 Ondansetron HCl (Zofran Inj) 4 mg Q6H PRN IV NAUSEA AND/OR VOMITING; Start at 09:00 Famotidine 20 mg 20 mg Q12 IV Last administered on 07/07/16 08:31; Admin Dose 20 MG; Start 07/05/16 at 09:00 Potassium Chloride/Lactated Ringer's (KCl/Lr) 1,010 ml @ 50 mls/hr [id number] IV Last administered on 07/06/16 21:55; Admin Dose 50 MLS/HR; Start 07/05/16 at 10 :00 Hydromorphone HCl (Dilaudid) 0.5 mg Q6H PRN IV PAIN LEVEL 6-10 Last administered on 07/06/16t 20:19; Admin Dose 0.5 MG; Start 07/06/16 at 20:00 Tramadol HCl (Ultram) 50 mg Q6H PRN PO PAIN; Start 07/06/16 at 18:30 TIFFANY NICHOLSON M.D. July 07, 2016 11:21
[2016-07-07] MEDS: POTASSIUM CHLORIDE 20 MEQ in LACTATED RINGER'S 1,000 ML IV SCH (14:43)
--- NOTE | 2016-07-07 14:56 | PN ---
Date/Time of Note Date/Time of Note DATE: 07/07/16 TIME: 14:52 Assessment/Plan VTE Prophylaxis VTE Prophylaxis Intervention: SCD's Lines/Catheters IV [facility]ter [facility] (from [facility]): Peripheral IV Urinary Cath still in place: No Assessment/Plan Chief Complaint/Hosp Course Pelvic mass, possible pneumonia Problems: Assessment/Plan A- doing better P- adv to soft diet and if tolerated OK to discharge home when OK by hospitalist from a pulm/cardiac perspective. Subjective 24 Hr Interval Summary Free Text/Dictation + flatus and somewhat loose BM. No N/V. OOB more. Coughed once with large green object described. Exam/Review of Systems Vital Signs Vitals Vital Signs Date Time Temp Pulse Resp B/P Pulse Ox O2 Delivery O2 Flow Rate FiO2 07/07/16 14:32 Nasal Cannula 2.0 07/07/16 08:45 67 14 99 07/07/16 07:00 98.6 147/84 07/07/16 02:28 21 Intake and Output 07/06/16 07/06/16 07/07/16 15:00 23:00 07:00 Intake Total 800 ml 1970 ml 1000 ml Output Total 2400 ml 1500 ml Balance 800 ml -430 ml -500 ml Exam Resp- clear CVS- NSR Abd- soft and NT, clean EXT- NT no edema Results Result Diagram: 07/07/16 0508 07/07/16 0500 Results 24 hrs Laboratory Tests Test 07/06/16 17:19 07/06/16 21:48 07/07/16 05:00 07/07/16 05:08 Bedside Glucose 131 122 Sodium Level 142 Potassium Level 3.5 Chloride Level 106 Carbon Dioxide Level 30 Anion Gap 10 Blood Urea Nitrogen 14 Creatinine 0.92 Glucose Level 114 # Calcium Level 8.2 L White Blood Count 8.8 # Red Blood Count 4.29 Hemoglobin 13.0 Hematocrit 40.4 Mean Corpuscular Volume 94.2 Mean Corpuscular Hemoglobin 30.3 Mean Corpuscular Hemoglobin Concent 32.2 Red Cell Distribution Width 14.6 H Platelet Count 208 Mean Platelet Volume 9.6 Neutrophils % 65.9 Lymphocytes % 24.1 Monocytes % 6.7 Eosinophils % 2.6 Basophils % 0.2 Nucleated Red Blood Cells % 0.0 Neutrophils # 5.8 Lymphocytes # 2.1 Monocytes # 0.6 Eosinophils # 0.2 Basophils # 0.0 Nucleated Red Blood Cells # 0.0 Test 07/07/16 08:28 07/07/16 12:21 Bedside Glucose 106 117 Medications Medications Current Medications Acetaminophen (Tylenol Tab) 650 mg Q6H PRN PO PAIN LEVEL 1-3 OR FEVER; Start at 06:30 Morphine Sulfate (morphine) 2 mg Q4H PRN IV SEVERE PAIN LEVEL 7-10 Last administered on 07/06/16 11:21; Admin Dose 2 MG; Start 07/01/16 at 06:30 Docusate Sodium (Colace) 100 mg Q12H PRN PO CONSTIPATION; Start 07/01/16 at 06: 30 Magnesium Hydroxide (Milk Of Mag) 30 ml DAILY PRN PO CONSTIPATION; Start at 06:30 Pantoprazole (Protonix Iv) 40 mg DAILY@06 IV Last administered on 07/07/16 05: 46; Admin Dose 40 MG; Start 07/02/16 at 06:00 Diagnostic Test (Pha) (Accu-Chek) 1 ea 02 XX ; Start 07/02/16 at 02:00 Miscellaneous Information 1 ea NOTE XX ; Start 07/01/16 at 07:00 Glucose (Glutose) 15 gm Q15M PRN PO DECREASED GLUCOSE; Start 07/01/16 at 07:00 Glucose (Glutose) 22.5 gm Q15M PRN PO DECREASED GLUCOSE; Start 07/01/16 at 07: 00 Dextrose (D50w Syringe) 25 ml Q15M PRN IV DECREASED GLUCOSE; Start 07/01/16 at 07:00 Dextrose (D50w Syringe) 50 ml Q15M PRN IV DECREASED GLUCOSE; Start 07/01/16 at 07:00 Glucagon (Glucagen) 1 mg Q15M PRN IM DECREASED GLUCOSE; Start 07/01/16 at 07:00 Glucose (Glutose) 15 gm Q15M PRN BUCCAL DECREASED GLUCOSE; Start 07/01/16 at 07 :00 Atorvastatin Calcium (Lipitor) 40 mg HS PO Last administered on 07/06/16 21:43 ; Admin Dose 40 MG; Start 07/01/16 at 21:00 Baclofen (Lioresal) 10 mg TID PO Last administered on 07/07/16 12:39; Admin Dose 10 MG; Start 07/01/16 at 21:00 Clonazepam (Klonopin) 0.5 mg TID PO Last administered on 07/07/16 12:39; Admin Dose 0.5 MG; Start 07/01/16 at 19:00 Duloxetine HCl (Cymbalta) 60 mg DAILY PO Last administered on 07/07/16 08:31; Admin Dose 60 MG; Start 07/02/16 at 09:00 Hydromorphone HCl (Dilaudid) 2 mg TID PRN PO pain Last administered on 17:26; Admin Dose 2 MG; Start 07/01/16 at 13:30 Metoprolol Succinate (Toprol Xl) 100 mg DAILY PO Last administered on 08:33; Admin Dose 100 MG; Start 07/02/16 at 09:00 Quetiapine Fumarate (Seroquel) 400 mg QHS PO Last administered on 07/06/16 21: 43; Admin Dose 400 MG; Start 07/01/16 at 21:00 Pregabalin (Lyrica) 50 mg BID PO Last administered on 07/07/16 08:32; Admin Dose 50 MG; Start 07/01/16 at 21:00 Furosemide 20 mg 20 mg DAILY IV Last administered on 07/07/16 08:31; Admin Dose 20 MG; Start 07/03/16 at 09:00 Ceftriaxone Sodium (Rocephin) 50 ml @ 100 mls/hr Q24H IVPB Last administered on 07/06/16 23:40; Admin Dose 100 MLS/HR; Start 07/02/16 at 23:30 Acetaminophen/ Hydrocodone Bitart ([place] (5/325)) 1 tab Q6H PRN PO PAIN LEVEL 6 -10; Start 07/05/16 at 09:00 Ondansetron HCl (Zofran Inj) 4 mg Q6H PRN IV NAUSEA AND/OR VOMITING; Start at 09:00 Famotidine 20 mg 20 mg Q12 IV Last administered on 07/07/16 08:31; Admin Dose 20 MG; Start 07/05/16 at 09:00 Potassium Chloride/Lactated Ringer's (KCl/Lr) 1,010 ml @ 50 mls/hr [id number] IV Last administered on 07/07/16 14:43; Admin Dose 50 MLS/HR; Start 07/05/16 at 10 :00 Hydromorphone HCl (Dilaudid) 0.5 mg Q6H PRN IV PAIN LEVEL 6-10 Last administered on 07/06/16t 20:19; Admin Dose 0.5 MG; Start 07/06/16 at 20:00 Tramadol HCl (Ultram) 50 mg Q6H PRN PO PAIN; Start 07/06/16 at 18:30 SEBASTIAN RONDON MD July 07, 2016 14:56
--- NOTE | 2016-07-07 15:35 | PDOCDIS ---
Discharge Instructions CONDITION Patient Condition: Stable HOME CARE INSTRUCTIONS: Special Diet: CLEAR LIQUID DIET ACTIVITY: Activity Restrictions: Slowly Increase Activity FOLLOW UP/APPOINTMENTS Appointments f/u own pcp [address] reyes 1 wk LATRICIA WORLEY MD July 07, 2016 15:35
[2016-07-07] MEDS ORDERED: AMOX1TAB10 PO (15:39)
[2016-07-07] MEDS ORDERED: IPRA3AMP HHN (15:39)
--- NOTE | 2016-07-07 15:43 | PN ---
Date/Time of Note Date/Time of Note DATE: 07/07/16 TIME: 15:42 Assessment/Plan VTE Prophylaxis VTE Prophylaxis Intervention: other Lines/Catheters IV Catheter Type (from [facility]): Peripheral IV Urinary Cath still in place: No Assessment/Plan Chief Complaint/Hosp Course IMPRESSION: 1. The patient has complex pelvic cystic structure 11.8 x 11.2 x 10.6 cm in size. 2. The patient has hypernatremia. better 3. The patient has renal insufficiency. 4. History of diabetes mellitus. 5. Dyslipidemia. 6. History of hypertension. 7. History of cholecystectomy. 9 copd 10 poss pneumonia/atelectasis 11 s/p surgery plan home Problems: Subjective 24 Hr Interval Summary Cardiovascular: no complaints Gastrointestinal: no complaints Exam/Review of Systems Vital Signs Vitals Vital Signs Date Time Temp Pulse Resp B/P Pulse Ox O2 Delivery O2 Flow Rate FiO2 07/07/16 14:32 Nasal Cannula 2.0 07/07/16 08:45 67 14 99 07/07/16 07:00 98.6 147/84 07/07/16 02:28 21 Intake and Output 07/06/16 07/06/16 07/07/16 15:00 23:00 07:00 Intake Total 800 ml 1970 ml 1000 ml Output Total 2400 ml 1500 ml Balance 800 ml -430 ml -500 ml Exam Cardiovascular: regular rate and rhythm Gastrointestinal: soft Musculoskeletal: nl extremities to inspection Results Result Diagram: 07/07/16 0508 07/07/16 0500 Results 24 hrs Laboratory Tests Test 07/06/16 17:19 07/06/16 21:48 07/07/16 05:00 07/07/16 05:08 Bedside Glucose 131 122 Sodium Level 142 Potassium Level 3.5 Chloride Level 106 Carbon Dioxide Level 30 Anion Gap 10 Blood Urea Nitrogen 14 Creatinine 0.92 Glucose Level 114 # Calcium Level 8.2 L White Blood Count 8.8 # Red Blood Count 4.29 Hemoglobin 13.0 Hematocrit 40.4 Mean Corpuscular Volume 94.2 Mean Corpuscular Hemoglobin 30.3 Mean Corpuscular Hemoglobin Concent 32.2 Red Cell Distribution Width 14.6 H Platelet Count 208 Mean Platelet Volume 9.6 Neutrophils % 65.9 Lymphocytes % 24.1 Monocytes % 6.7 Eosinophils % 2.6 Basophils % 0.2 Nucleated Red Blood Cells % 0.0 Neutrophils # 5.8 Lymphocytes # 2.1 Monocytes # 0.6 Eosinophils # 0.2 Basophils # 0.0 Nucleated Red Blood Cells # 0.0 Test 07/07/16 08:28 07/07/16 12:21 Bedside Glucose 106 117 Medications Medications Current Medications Acetaminophen (Tylenol Tab) 650 mg Q6H PRN PO PAIN LEVEL 1-3 OR FEVER; Start at 06:30 Morphine Sulfate (morphine) 2 mg Q4H PRN IV SEVERE PAIN LEVEL 7-10 Last administered on 07/06/16 11:21; Admin Dose 2 MG; Start 07/01/16 at 06:30 Docusate Sodium (Colace) 100 mg Q12H PRN PO CONSTIPATION; Start 07/01/16 at 06: 30 Magnesium Hydroxide (Milk Of Mag) 30 ml DAILY PRN PO CONSTIPATION; Start at 06:30 Pantoprazole (Protonix Iv) 40 mg DAILY@06 IV Last administered on 07/07/16 05: 46; Admin Dose 40 MG; Start 07/02/16 at 06:00 Diagnostic Test (Pha) (Accu-Chek) 1 ea 02 XX ; Start 07/02/16 at 02:00 Miscellaneous Information 1 ea NOTE XX ; Start 07/01/16 at 07:00 Glucose (Glutose) 15 gm Q15M PRN PO DECREASED GLUCOSE; Start 07/01/16 at 07:00 Glucose (Glutose) 22.5 gm Q15M PRN PO DECREASED GLUCOSE; Start 07/01/16 at 07: 00 Dextrose (D50w Syringe) 25 ml Q15M PRN IV DECREASED GLUCOSE; Start 07/01/16 at 07:00 Dextrose (D50w Syringe) 50 ml Q15M PRN IV DECREASED GLUCOSE; Start 07/01/16 at 07:00 Glucagon (Glucagen) 1 mg Q15M PRN IM DECREASED GLUCOSE; Start 07/01/16 at 07:00 Glucose (Glutose) 15 gm Q15M PRN BUCCAL DECREASED GLUCOSE; Start 07/01/16 at 07 :00 Atorvastatin Calcium (Lipitor) 40 mg HS PO Last administered on 07/06/16 21:43 ; Admin Dose 40 MG; Start 07/01/16 at 21:00 Baclofen (Lioresal) 10 mg TID PO Last administered on 07/07/16 12:39; Admin Dose 10 MG; Start 07/01/16 at 21:00 Clonazepam (Klonopin) 0.5 mg TID PO Last administered on 07/07/16 12:39; Admin Dose 0.5 MG; Start 07/01/16 at 19:00 Duloxetine HCl (Cymbalta) 60 mg DAILY PO Last administered on 07/07/16 08:31; Admin Dose 60 MG; Start 07/02/16 at 09:00 Hydromorphone HCl (Dilaudid) 2 mg TID PRN PO pain Last administered on 17:26; Admin Dose 2 MG; Start 07/01/16 at 13:30 Metoprolol Succinate (Toprol Xl) 100 mg DAILY PO Last administered on 08:33; Admin Dose 100 MG; Start 07/02/16 at 09:00 Quetiapine Fumarate (Seroquel) 400 mg QHS PO Last administered on 07/06/16 21: 43; Admin Dose 400 MG; Start 07/01/16 at 21:00 Pregabalin (Lyrica) 50 mg BID PO Last administered on 07/07/16 08:32; Admin Dose 50 MG; Start 07/01/16 at 21:00 Furosemide 20 mg 20 mg DAILY IV Last administered on 07/07/16 08:31; Admin Dose 20 MG; Start 07/03/16 at 09:00 Ceftriaxone Sodium (Rocephin) 50 ml @ 100 mls/hr Q24H IVPB Last administered on 07/06/16 23:40; Admin Dose 100 MLS/HR; Start 07/02/16 at 23:30 Acetaminophen/ Hydrocodone Bitart ([place] (5/325)) 1 tab Q6H PRN PO PAIN LEVEL 6 -10; Start 07/05/16 at 09:00 Ondansetron HCl (Zofran Inj) 4 mg Q6H PRN IV NAUSEA AND/OR VOMITING; Start at 09:00 Famotidine 20 mg 20 mg Q12 IV Last administered on 07/07/16 08:31; Admin Dose 20 MG; Start 07/05/16 at 09:00 Potassium Chloride/Lactated Ringer's (KCl/Lr) 1,010 ml @ 50 mls/hr [id number] IV Last administered on 07/07/16 14:43; Admin Dose 50 MLS/HR; Start 07/05/16 at 10 :00 Hydromorphone HCl (Dilaudid) 0.5 mg Q6H PRN IV PAIN LEVEL 6-10 Last administered on 07/06/16 20:19; Admin Dose 0.5 MG; Start 07/06/16 at 20:00 Tramadol HCl (Ultram) 50 mg Q6H PRN PO PAIN; Start 07/06/16 at 18:30 LATRICIA WORLEY MD July 07, 2016 15:43
[2016-07-07] MEDS: ATORVASTATIN 40 MG TAB PO SCH (20:12)
[2016-07-07] MEDS: QUETIAPINE 100 MG TAB PO SCH (20:13)
[2016-07-07] MEDS ORDERED: FAMOTIDINE 20 MG TAB PO SCH (21:00)
== END 2016-07-07 20:20 | disposition home or self-care (01) | DRG 742 ==
LOC: E/R 18:47 → PP2 07-01 04:15 → MS1 07-05 15:25
PROVIDERS: ADMIT Internal Medicine Nephrology; ATTEND Internal Medicine Nephrology
PROC: 0UT24ZZ Resection of Bilateral Ovaries, Percutaneous Endoscopic Approach (ICD-10-PCS; principal; 2016-07-06)
PROC: 0UT74ZZ Resection of Bilateral Fallopian Tubes, Percutaneous Endoscopic Approach (ICD-10-PCS; 2016-07-06)
PROC: 0TS64ZZ Reposition Right Ureter, Percutaneous Endoscopic Approach (ICD-10-PCS; 2016-07-06)
DX: D27.0 Benign neoplasm of right ovary (principal); I50.33 Acute on chronic diastolic (congestive) heart failure; J18.9 Pneumonia, unspecified organism; E87.0 Hyperosmolality and hypernatremia; E11.42 Type 2 diabetes mellitus with diabetic polyneuropathy; I11.0 Hypertensive heart disease with heart failure; Z68.41 Body mass index [BMI] 40.0-44.9, adult; J98.11 Atelectasis; J44.9 Chronic obstructive pulmonary disease, unspecified; N13.5 Crossing vessel and stricture of ureter without hydronephrosis; D28.2 Benign neoplasm of uterine tubes and ligaments; E66.01 Morbid (severe) obesity due to excess calories; E78.5 Hyperlipidemia, unspecified; F17.200 Nicotine dependence, unspecified, uncomplicated; I86.2 Pelvic varices; N28.9 Disorder of kidney and ureter, unspecified; N83.292 Other ovarian cyst, left side; N83.8 Other noninflammatory disorders of ovary, fallopian tube and broad ligament; R10.9 Unspecified abdominal pain; R94.31 Abnormal electrocardiogram [ECG] [EKG]; Z90.49 Acquired absence of other specified parts of digestive tract
CPT/HCPCS: 36415; 36600; 71010; 71020; 71260; 74177; 80048; 80053; 81001; 81003; 82378; 82803; 82962; 83690; 84484; 85025; 85610; 86304; 88305; 93005; 93306; 94640; 94664; 96374; 96375; J1940; C9113; J0690; J0696; J1100; J1170; J1644; J1650; J1815; J2250; J2270; J2274; J2370; J2405; J2710; J2765; J2795; J3480; J7120; Q9967